=== PATIENT | male | born 2000 | race Asian ===

== ENCOUNTER 2020-05-10 10:34 | Inpatient (IN) | payer BC ==
[2020-05-10] MEDS ORDERED: SODIUM CHLORIDE 0.9% 1,000 ML IV STA (11:19)
[2020-05-10 12:17] LABS: Basophils % (A) 0 %; Eosinophils # (A) 0.2 k/uL (0-0.7); Eosinophils % (A) 1 %; HCT 41.4 % (39.0-53.0); HGB 13.4 gm/dL (13.0-17.5); Lymphocytes # (A) 1.4 k/uL (1.0-4.8); Lymphocytes % (A) 8 %; MCH 25.6 pg (25.0-35.0); MCHC 32.5 g/dL (31.0-37.0); MCV 78.9 fL (80.0-100.0); Mean Platelet Volume 6.6; Monocytes # (A) 1.4 k/uL (0-1.0); Monocytes % (A) 8 %; Neutrophils # (A) 14.7 k/uL (1.3-7.7); Neutrophils % (A) 82 %; Platelet Count 487 k/uL (150-450); RBC 5.25 m/uL (4.30-5.90); WBC 17.9 k/uL (3.8-10.6)
[2020-05-10 12:21] LABS: Appearance,Urine Clear (Clear); Bilirubin,Urine Negative (Negative); Blood,Urine Negative (Negative); Color,Urine Yellow; Glucose,Urine (UA) Negative (Negative); Hyaline Casts,Urine 1 /lpf (0-2); Ketones,Urine 2+ (Negative); Leukocyte Esterase,Urine Negative (Negative); Mucus,Urine Many /hpf; Nitrite,Urine Negative (Negative); Protein,Urine 1+ (Negative); RBC,Urine 1 /hpf (0-5); Squamous Epithelial Cell,Urine <1 /hpf (0-4); Urobilinogen,Urine <2.0 mg/dL (<2.0); WBC,Urine 1 /hpf (0-5)
[2020-05-10 12:23] LABS: ALT 32 U/L (4-49); AST 27 U/L (17-59); African American GFR (CKD) >90 (>60 ml/min/1.73 sqM); Alkaline Phosphatase 96 U/L (38-126); Amylase 45 U/L (30-110); Anion Gap 10 mmol/L; Blood Urea Nitrogen 8 mg/dL (9-20); Calcium 9.4 mg/dL (8.4-10.2); Carbon Dioxide 27 mmol/L (22-30); Chloride 99 mmol/L (98-107); Glucose 103 mg/dL (74-99); Lipase 58 U/L (23-300); Non-African American GFR(CKD) >90 (>60 ml/min/1.73 sqM); Potassium 4.3 mmol/L (3.5-5.1); Sodium 136 mmol/L (137-145); Total Bilirubin 0.8 mg/dL (0.2-1.3); Total Protein 8.3 g/dL (6.3-8.2)
--- NOTE | 2020-05-10 12:24 | ED ---
Abdominal Pain HPI - General Chief Complaint: Abdominal Pain Stated Complaint: Abd pain Time Seen by Provider: 05/10/20 11:09 Source: patient, RN notes reviewed Mode of arrival: ambulatory Limitations: no limitations - History of Present Illness Initial Comments: 19-year-old male presents emergency Department chief complaint of abdominal pain 5 or 6 days. Patient states that started in mid abdomen has no increase her right lower he's had decreased appetite but states he's been drinking large amounts of fluids.Denies diarrhea constipation. She's had no prior abdominal surgeries patient is concerned about possible diabetes as she has not family h istory patient had low-grade temp at home. Patient denies any headache or dizziness no chest pain or shortness breath. - Related Data Home Medications Medication Instructions Recorded Confirmed No Known Home Medications 05/10/20 05/10/20 Allergies Allergy/AdvReac Type Severity Reaction Status Date / Time No Known Allergies Allergy Verified 05/10/20 11:31 Review of Systems ROS Statement: Those systems with pertinent positive or pertinent negative responses have been documented in the HPI. ROS Other: All systems not noted in ROS Statement are negative. Past Medical History Past Medical History: No Reported History History of Any Multi-Drug Resistant Organisms: None Reported Past Surgical History: No Surgical Hx Reported Past Psychological History: No Psychological Hx Reported Smoking Status: Never smoker Past Alcohol Use History: Occasional Past Drug Use History: None Reported General Exam Limitations: no limitations General appearance: alert, in no apparent distress Head exam: Present: atraumatic, normocephalic, normal inspection Eye exam: Present: normal appearance, PERRL, EOMI. Absent: scleral icterus, conjunctival injection, periorbital swelling ENT exam: Present: normal exam, normal oropharynx, mucous membranes moist Neck exam: Present: normal inspection. Absent: tenderness, meningismus, lymphadenopathy Respiratory exam: Present: normal lung sounds bilaterally. Absent: respiratory distress, wheezes, rales, rhonchi, stridor Cardiovascular Exam: Present: regular rate, normal rhythm, normal heart sounds. Absent: systolic murmur, diastolic murmur, rubs, gallop, clicks GI/Abdominal exam: Present: soft, tenderness (Moderate lower quadrant), normal bowel sounds. Absent: distended, guarding, rebound, rigid Back exam: Absent: CVA tenderness (R), CVA tenderness (L) Neurological exam: Present: alert, oriented X3 Skin exam: Present: warm, dry, intact, normal color. Absent: rash Course Vital Signs 05/10/20 10:56 Temperature 100.3 F H Pulse Rate 96 Respiratory 18 Rate Blood Pressure 144/84 O2 Sat by Pulse 100 Oximetry Medical Decision Making - Medical Decision Making Case discussed with Dr. gonzales accepted admission. she asked consult GI and Dr. Coe for surgery. - Lab Data Result diagrams: 05/10/20 11:42 05/10/20 11:42 Lab Results 05/10/20 05/10/20 05/10/20 Range/Units 11:42 11:42 11:42 WBC 17.9 H (3.8-10.6) k/uL RBC 5.25 (4.30-5.90) m/uL Hgb 13.4 (13.0-17.5) gm/dL Hct 41.4 (39.0-53.0) % MCV 78.9 L (80.0-100.0) fL MCH 25.6 (25.0-35.0) pg MCHC 32.5 (31.0-37.0) g/dL RDW 14.0 (11.5-15.5) % Plt Count 487 H (150-450) k/uL MPV 6.6 Neutrophils % 82 % Lymphocytes % 8 % Monocytes % 8 % Eosinophils % 1 % Basophils % 0 % Neutrophils # 14.7 H (1.3-7.7) k/uL Lymphocytes # 1.4 (1.0-4.8) k/uL Monocytes # 1.4 H (0-1.0) k/uL Eosinophils # 0.2 (0-0.7) k/uL Basophils # 0.0 (0-0.2) k/uL Sodium 136 L (137-145) mmol/L Potassium 4.3 (3.5-5.1) mmol/L Chloride 99 (98-107) mmol/L Carbon Dioxide 27 (22-30) mmol/L Anion Gap 10 mmol/L BUN 8 L (9-20) mg/dL Creatinine 0.72 (0.66-1.25) mg/dL Est GFR (CKD-EPI)AfAm >90 (>60 ml/min/1.73 sqM) Est GFR (CKD-EPI)NonAf >90 (>60 ml/min/1.73 sqM) Glucose 103 H (74-99) mg/dL Calcium 9.4 (8.4-10.2) mg/dL Total Bilirubin 0.8 (0.2-1.3) mg/dL AST 27 (17-59) U/L ALT 32 (4-49) U/L Alkaline Phosphatase 96 (38-126) U/L Total Protein 8.3 H (6.3-8.2) g/dL Albumin 4.0 (3.5-5.0) g/dL Amylase 45 (30-110) U/L Lipase 58 (23-300) U/L Urine Color Yellow Urine Appearance Clear (Clear) Urine pH 6.0 (5.0-8.0) Ur Specific [place] 1.030 (1.001-1.035) Urine Protein 1+ H (Negative) Urine Glucose (UA) Negative (Negative) Urine Ketones 2+ H (Negative) Urine Blood Negative (Negative) Urine Nitrite Negative (Negative) Urine Bilirubin Negative (Negative) Urine Urobilinogen <2.0 (<2.0) mg/dL Ur Leukocyte Esterase Negative (Negative) Urine RBC 1 (0-5) /hpf Urine WBC 1 (0-5) /hpf Ur Squamous Epith Cells <1 (0-4) /hpf Hyaline Casts 1 (0-2) /lpf Urine Mucus Many H (None) /hpf Disposition Clinical Impression: Abdominal pain, Intra-abdominal abscess, Crohn's disease Disposition: ADMITTED IP TO THIS [facility] Condition: Fair Referrals: None,Stated [Primary Care Provider] - 1-2 days
--- NOTE | 2020-05-10 12:40 | CT ---
EXAMINATION TYPE: CT abdomen pelvis w con DATE OF EXAM: 05/10/2020 COMPARISON: HISTORY: Abd pain CT DLP: 1060.1 mGycm Automated exposure control for dose reduction was used. TECHNIQUE: Helical acquisition of images from the lung bases through the pelvis have been completed. CONTRAST: Performed without Oral Contrast and with IV Contrast, patient injected with 100 mL of Isovue 300. FINDINGS: LUNG BASES: No significant abnormality is appreciated. AORTA: No significant abnormality is appreciated. LIVER/GB: No significant abnormality is appreciated. PANCREAS: No significant abnormality is seen. SPLEEN: No significant abnormality is seen. ADRENALS: No significant abnormality is seen. KIDNEYS: No significant abnormality is seen. REPRODUCTIVE ORGANS: No significant abnormality is seen BOWEL: There is abnormal thickening of bowel loops within the central abdomen. Terminal ileum shows inflammatory change with wall thickening, increased attenuation present within the mesenteric fat. In terloop fluid collection is suspected, axial image 51 measuring 3.7 x 1.5 cm extending inferiorly to an additional collection measuring approximately 2.3 cm in size, axial image 56. Abnormal thickening of the cecum is also present, ascending colon shows some thickening as does the transverse colon FREE AIR: No Free Air visible. ASCITES: There is some free fluid in the pelvis. PELVIC ADENOPATHY: None visualized. RETROPERITONEAL ADENOPATHY: No Retroperitoneal Adenopathy visible. URINARY BLADDER: No significant abnormality is seen. OSSEOUS STRUCTURES: No significant abnormality is seen. IMPRESSION: INTERLOOP ABSCESSES WITH ASSOCIATED INFLAMMATORY CHANGE, CORRELATE FOR POSSIBLE COLITIS, CROHN'S DISE ASE
[2020-05-10] MEDS ORDERED: PIPERACILLIN-TAZOBACTAM 3.375 GM in SODIUM CHLORIDE 0.9% 100 ML IVPB STA (12:42)
[2020-05-10] MEDS ORDERED: NALOXONE 0.4 MG/ML 1 ML VIAL IV PRN (13:10)
[2020-05-10] MEDS ORDERED: MORPHINE SULFATE 4 MG/ML SYRINGE IV PRN (13:10)
[2020-05-10] MEDS ORDERED: ONDANSETRON 4 MG/2 ML VIAL IVP PRN (13:10)
--- NOTE | 2020-05-10 14:55 | P.HPIM ---
History of Present Illness This is a pleasant 19 years old male with no significant past medical history. He states he follows with her doctor at [place] as a family doctor. Since March his been having mid abdominal pain and more to the right side that comes and goes as on and off, pain was sharp in character and increased by eating relieved by cast and passing bowel movement but it will not go away completely. Niotaze like 1-2/10 in severity associated with decreased appetite Sometimes he will have diarrhea but no blood. No mucus. It was relieved spontaneously bypass given however returned back to the week after so his parent's surgeon to come to the hospital. Patient denies other symptoms, no loss of weight or nausea or chest pain. No dyspnea. No coughing. No fever His nonsmoker, drinks alcohol occasionally. No illicit tracts On admission he has fever of 101.5 Has leukocytosis of 17.9 K, rest of CBC is unremarkable. Sodium 136, creatinine normal 0.7. Liver enzymes elevated. Lipase is normal at 58. C-reactive protein is elevated at 255. ESR is ordered and is pending. Stool studies as been requested. CT of the abdomen and pelvis showing interloop abscesses with associated inflammatory changes, correlate for possible colitis, Crohn's disease. Review of Systems CONSTITUTIONAL: No fever, no malaise, no fatigue. HEENT: No recent visual problems or hearing problems. Denied any sore throat. CARDIOVASCULAR: No orthopnea, PND, no palpitations, no syncope. PULMONARY: No shortness of breath, no cough, no hemoptysis. GASTROINTESTINAL: No diarrhea, no nausea, no vomiting, no abdominal pain. Norm oactive bowel sounds. NEUROLOGICAL: No headaches, no weakness, no numbness. HEMATOLOGICAL: Denies any bleeding or petechiae. GENITOURINARY: Denies any burning micturition, frequency, or urgency. MUSCULOSKELETAL/RHEUMATOLOGICAL: Denies any joint pain, swelling, or any muscle pain. ENDOCRINE: Denies any polyuria or polydipsia. Past Medical History Past Medical History: No Reported History History of Any Multi-Drug Resistant Organisms: None Reported Past Surgical History: No Surgical Hx Reported Past Psychological History: No Psychological Hx Reported Smoking Status: Never smoker Past Alcohol Use History: Occasional Past Drug Use History: None Reported Medications and Allergies Home Medications Medication Instructions Recorded Confirmed Type No Known Home Medications 05/10/20 05/10/20 History Allergies Allergy/AdvReac Type Severity Reaction Status Date / Time No Known Allergies Allergy Verified 05/10/20 11:31 Physical Exam Vitals: Vital Signs Temp Pulse Resp BP Pulse Ox 05/10/20 13:00 101.5 F H 99 18 147/85 99 05/10/20 10:56 100.3 F H 96 18 144/84 100 Intake and Output 05/09/20 05/10/20 05/10/20 22:59 06:59 14:59 Intake Total 175 Balance 175 Intake: Amount of Fluid Infused ( 175 ml) Other: Weight 92.533 kg GENERAL: The patient is alert and oriented x3, not in any acute distress. Well developed, well nourished. HEENT: Pupils are round and equally reacting to light. EOMI. No scleral icterus. No conjunctival pallor. Normocephalic, atraumatic. No pharyngeal erythema. No thyromegaly. CARDIOVASCULAR: S1 and S2 present. No murmurs, rubs, or gallops. PULMONARY: Chest is clear to auscultation, no wheezing or crackles. -ABDOMEN: Soft, Mild right lower quadrant tenderness, no rebound tenderness, nondistended, normoactive bowel sounds. No palpable organomegaly. MUSCULOSKELETAL: No joint swelling or deformity. EXTREMITIES: No cyanosis, clubbing, or pedal edema. NEUROLOGICAL: Gross neurological examination did not reveal any focal deficits. SKIN: No rashes. No petechiae Results CBC & Chem 7: 05/10/20 11:42 05/10/20 11:42 Labs: Abnormal Lab Results - Last 24 Hours (Table) 05/10/20 05/10/20 05/10/20 Range/Units 11:42 11:42 11:42 WBC 17.9 H (3.8-10.6) k/uL MCV 78.9 L (80.0-100.0) fL Plt Count 487 H (150-450) k/uL Neutrophils # 14.7 H (1.3-7.7) k/uL Monocytes # 1.4 H (0-1.0) k/uL Sodium 136 L (137-145) mmol/L BUN 8 L (9-20) mg/dL Glucose 103 H (74-99) mg/dL Total Protein 8.3 H (6.3-8.2) g/dL Urine Protein 1+ H (Negative) Urine Ketones 2+ H (Negative) Urine Mucus Many H (None) /hpf Assessment and Plan Assessment: Gastroenteritis, especially terminal ileitis and ascending and transverse colitis suspicious for Crohn's disease Interloop abdominal abscesses measuring 3.7 x 1.5 cm and additional 2.3 cm abscess. Sepsis secondary to above Plan: This is a pleasant 19 years old male who presents with gastroenteritis and abdominal abscess. Continue with Zosyn. Follow-up culture results. Follow-up stool studies. Follow-up ESR and C-reactive protein. GI and surgery consult Labs and medication were reviewed.. Continue same treatment. Continue with symptomatic treatment. Resume home medication. Monitor lytes and vitals. DVT and GI prophylaxis. Further recommendations depends on the clinical course of the patient DVT prophylaxis: Subcutaneous lovenox GI Prophylaxis: Ppi
[2020-05-10] MEDS: SODIUM CHLORIDE 0.9% 1,000 ML IV SCH ×2 (15:27→20:45)
[2020-05-10] MEDS: PANTOPRAZOLE 40 MG/10 ML VIAL IVP SCH (16:55)
[2020-05-10] MEDS: PIPERACILLIN-TAZOBACTAM 3.375 GM in SODIUM CHLORIDE 0.9% 100 ML IVPB SCH (20:44)
--- NOTE | 2020-05-10 22:31 | P.CONS ---
History of Present Illness - Reason for Consult Consult date: 05/10/20 Crohn's disease Requesting physician: Rik Yusuf Sheet - Chief Complaint Abdominal pain - History of Present Illness Pleasant 19-year-old male who denies any prior medical history who presented to the hospital due to complaints of abdominal pain. The patient reports intermi ttent episodes of abdominal pain which have been going on over the past few months. The pain worsened recently and the patient presented for further evaluation. He reports periumbilical pain worse on the right side of his abdomen. He states that the pain is aching in nature and worse with eating. He has had associated loss of appetite. The patient was found to be febrile on presentation with a temperature of 101.5F. Amylase and lipase within normal limits at 45 and 50 respectively with WBC 17.9, hemoglobin 13.4, the count 487,000. The patient denies any history of abdominal problems or issues with bowel movements prior to the past few months. He reports last bowel movement was today and normal in color. He denies any signs or symptoms of GI bleeding, although he does feel that bowel movements have been darker. Computed tomography scan of the abdomen on presentation showed interloop abscess with inflammatory changes of the terminal ileum and right colon. He denies any personal or family history of inflammatory bowel disease. Review of Systems REVIEW OF SYSTEMS: CONSTITUTIONAL: Denies any fevers, chills, weight change or fatigue. CARDIOVASCULAR: Denies any chest pain, palpitations high or low blood pressures RESPIRATORY: Denies any shortness of breath, hemoptysis or cough. GENITOURINARY: No dysuria or hematuria. MUSCULOSKELETAL: No weakness reported. SKIN: Denies any new rashes or lesions, jaundice or pallor. PSYCHIATRIC: Denies any depression or anxiety. NEUROLOGY: Denies headache, denies any new focal deficits. EARS/NOSE/THROAT: No recent hearing change, congestion, nasal discharge or sore throat. EYES: No pain in eyes, discharge or change in vision. GASTROINTESTINAL: As per HPI. Past Medical History Past Medical History: No Reported History History of Any Multi-Drug Resistant Organisms: None Reported Past Surgical History: No Surgical Hx Reported Past Psychological History: No Psychological Hx Reported Smoking Status: Never smoker Past Alcohol Use History: Occasional Past Drug Use History: None Reported - Past Family History Father Family Medical History: Coronary Artery Disease (CAD), Diabetes Mellitus Medications and Allergies Home Medications Medication Instructions Recorded Confirmed Type No Known Home Medications 05/10/20 05/10/20 History Allergies Allergy/AdvReac Type Severity Reaction Status Date / Time No Known Allergies Allergy Verified 05/10/20 11:31 Physical Exam Vitals: Vital Signs Temp Pulse Pulse Resp BP BP Pulse Ox 05/10/20 19:56 98.2 F 82 17 127/70 100 05/10/20 14:20 100.4 F H 99 16 139/78 98 05/10/20 13:00 101.5 F H 99 18 147/85 99 05/10/20 10:56 100.3 F H 96 18 144/84 100 Intake and Output 05/10/20 05/10/20 05/10/20 06:59 14:59 22:59 Intake Total 175 Balance 175 Intake: Amount of Fluid Infused ( 175 ml) Other: Voiding Method Toilet Weight 92.533 kg On physical examination, patient appears comfortable in no apparent distress. HEAD: Normocephalic, atraumatic. EYES: No scleral icterus. No conjunctival injection. MOUTH: No lesions, tongue midline. NECK: Trachea midline, no gross abnormalities. CHEST: Clear to auscultation with no wheezing or rhonchi appreciated. HEART: Regular rate and rhythm. ABDOMEN: Soft, thin with tenderness of the right upper and lower quadrants of the abdomen. Bowel sounds are positive. No organomegaly. No guarding or rigidity. EXTREMITIES: No pedal edema. SKIN: No rashes, no jaundice. NEUROLOGIC: Alert and oriented x3. No focal deficits. Results CBC & Chem 7: 05/10/20 11:42 05/10/20 11:42 Labs: Abnormal Lab Results - Last 24 Hours (Table) 05/10/20 05/10/20 05/10/20 Range/Units 11:42 11:42 11:42 WBC 17.9 H (3.8-10.6) k/uL MCV 78.9 L (80.0-100.0) fL Plt Count 487 H (150-450) k/uL Neutrophils # 14.7 H (1.3-7.7) k/uL Monocytes # 1.4 H (0-1.0) k/uL ESR (0-15) mm/hr Sodium 136 L (137-145) mmol/L BUN 8 L (9-20) mg/dL Glucose 103 H (74-99) mg/dL C-Reactive Protein (<10.0) mg/L Total Protein 8.3 H (6.3-8.2) g/dL Urine Protein 1+ H (Negative) Urine Ketones 2+ H (Negative) Urine Mucus Many H (None) /hpf 05/10/20 05/10/20 Range/Units 11:42 11:42 WBC (3.8-10.6) k/uL MCV (80.0-100.0) fL Plt Count (150-450) k/uL Neutrophils # (1.3-7.7) k/uL Monocytes # (0-1.0) k/uL ESR 85 H (0-15) mm/hr Sodium (137-145) mmol/L BUN (9-20) mg/dL Glucose (74-99) mg/dL C-Reactive Protein 255.9 H (<10.0) mg/L Total Protein (6.3-8.2) g/dL Urine Protein (Negative) Urine Ketones (Negative) Urine Mucus (None) /hpf CT scan - abdomen: report reviewed (Computed tomography scan of the abdomen with findings of interloop abscess and inflammatory changes of the terminal ileum and right colon possibly related to Crohn's colitis.) Assessment and Plan (1) Abdominal pain Narrative/Plan: 19-year-old male with no prior medical history who presented to the hospital with abdominal pain present over the past few months and worsening prior to presentation. She reported associated decreased oral intake and worsening of the pain with eating. He is continued to have bowel movements and denies any signs or symptoms GI bleeding although he does report some dark colored bowel movements. Patient did have leukocytosis on presentation with a WBC 17.9 and was noted to have a temperature of 101.5F. Currently the patient is on broad- spectrum antibiotic therapy. Computed tomography scan of the abdomen was significant for inflammatory changes of the terminal ileum and right colon as well as abscess formation. Unclear etiology of symptoms, however given presentation and findings on imaging concern is for Crohn's disease. Current Visit: Yes Status: Acute Code(s): R10.9 - UNSPECIFIED ABDOMINAL PAIN SNOMED Code(s): 19657250 (2) Intra-abdominal abscess Current Visit: Yes Status: Acute Code(s): K65.1 - PERITONEAL ABSCESS SNOMED Code(s): 12489032 Plan: Supportive care Nothing by mouth Continue monitor CBC, BMP, LFTs ESR and CRP ordered Continue broad-spectrum antibiotic therapy Await recommendations from the infectious disease and surgical services Extensive discussion with the patient regarding findings and presentation, at this time risk for endoscopic evaluation and complications of the procedure are increased in the setting of abscess formation and will continue medical management at this time IR service consult for possible drainage of the abscess Thank you for allowing us to participate in the care of the patient we will continue to follow
--- NOTE | 2020-05-11 00:35 | CONS ---
CONSULTATION DATE OF SERVICE: 05/10/2020 REASON FOR CONSULTATION: Abdominal abscess. HISTORY OF PRESENT ILLNESS: The patient is a 19-year-old male otherwise healthy presenting to the ER for abdominal pain. The pain started last about 6 days ago. Patient mentioned he did have some . However that lasted a few days and then disappeared and the patient did not seek any medical attention. Patient had been complaining of pain mostly in the periumbilical area, described to be more sharp in nature, almost 7 to 8/10 in severity. Some nausea but no vomiting. The patient did mention that eating food makes it get worse. No vomiting, but he did have diarrhea but no blood or mucus in the stool. Did have some chills but did not recall having any fever at home. On presentation to the hospital, the patient did have a fever of 101.5 degrees Fahrenheit. The patient did have mild tachycardia. The patient did have white count 17.9 with left shift. UA was negative. The patient did have CT of abdominal pelvis completed with evidence of interloop abscesses and change for possible colitis. The patient was started on Zosyn and admitted to the hospital. Infectious Disease was consulted for further management of antibiotic therapy. REVIEW OF SYSTEMS: Positive points have been mentioned in HPI. Rest of systems are negative. PAST MEDICAL HISTORY: No illnesses. PAST SURGICAL HISTORY: No surgeries. SOCIAL HISTORY: Denies smoking, occasionally drinks. No drug use. FAMILY HISTORY: No pertinent findings noticed. ALLERGIES: No known drug allergies. MEDICATIONS: The patient is currently on Tylenol, Lovenox, morphine sulfate, Narcan, Zofran, Protonix, Zosyn. PHYSICAL EXAMINATION: Blood pressure 127/70 with a pulse of 82, temperature 98.2, T-max 101.5. He is 100% on room air. General description is a young male lying in bed in no distress. No tachypnea or accessory muscles of respiration use. HEENT: Examination shows no pallor or scleral icterus. Oral mucous membrane is dry. Neck: Trachea central. No thyromegaly. Lungs: Unlabored breathing. Clear to auscultation anteriorly. No wheeze or crackles. Heart S1, S2. Regular rate and rhythm. ABDOMEN: Soft, mildly distended and tender. No guarding or rigidity. Extremities: No edema of the feet. Skin examination: No rash or mass palpable. Neurological: Patient is awake, alert, oriented times three. Mood and affect normal. LABS: Hemoglobin 13.4, white count 17.9, BUN of 8, creatinine 0.72. CRP to 5.9. DIAGNOSTIC IMPRESSION AND PLAN: Patient admitted to the hospital with sepsis in this patient who did have a fever, elevated white count, tachycardia source is intraabdominal abscess and a question of possible communication to the inflammatory bowel disease in this patient who did not have any diagnostic workup in the past and will need to cover for the enteric gram- negative both aerobes and anaerobes with likely pathogen. PLAN: 1. Zosyn 3.75 g q.8 hours should provide adequate coverage. 2. Await either Interventional Radiology or open drainage of this abscess at which time fluid should be sent for culture. 3. We will follow on clinical condition and culture to further adjust medication if needed. Thank you for this consultation. Will follow this patient along with you. MMODL / IJN: [id number] /
[2020-05-11] MEDS: PIPERACILLIN-TAZOBACTAM 3.375 GM in SODIUM CHLORIDE 0.9% 100 ML IVPB SCH ×3 (04:30→21:13)
[2020-05-11] MEDS: SODIUM CHLORIDE 0.9% 1,000 ML IV SCH ×3 (05:30→21:02)
[2020-05-11] MEDS: ENOXAPARIN 40 MG/0.4 ML SYRINGE SQ SCH (06:41)
[2020-05-11 06:50] LABS: Basophils # (A) 0.1 k/uL (0-0.2); Basophils % (A) 0 %; Eosinophils # (A) 0.1 k/uL (0-0.7); Eosinophils % (A) 1 %; HCT 37.8 % (39.0-53.0); HGB 12.3 gm/dL (13.0-17.5); Lymphocytes % (A) 7 %; MCH 25.9 pg (25.0-35.0); MCHC 32.4 g/dL (31.0-37.0); Mean Platelet Volume 6.4; Monocytes # (A) 1.1 k/uL (0-1.0); Monocytes % (A) 8 %; Neutrophils # (A) 11.4 k/uL (1.3-7.7); Neutrophils % (A) 83 %; Platelet Count 439 k/uL (150-450); RBC 4.73 m/uL (4.30-5.90); RDW 13.8 % (11.5-15.5); WBC 13.8 k/uL (3.8-10.6)
[2020-05-11] MEDS: PANTOPRAZOLE 40 MG/10 ML VIAL IVP SCH (07:21)
[2020-05-11 10:21] LABS: Anion Gap 9.4 mmol/L (4.00-12.00); C Reactive Protein 22.9 mg/dL (0.0-0.8); Calcium 8.8 mg/dL (8.7-10.3); Carbon Dioxide 24.6 mmol/L (21.6-31.8); Non-African American GFR(CKD) 127.7 (60.0-200.0); Potassium 4.1 mmol/L (3.5-5.5)
[2020-05-11 10:44] LABS: Erythrocyte Sedimentation Rate 78 mm/Hr (0-15)
--- NOTE | 2020-05-11 11:06 | P.GSCN ---
History of Present Illness Consult date: 05/11/20 History of present illness: CHIEF COMPLAINT: Right lower abdominal pain HISTORY OF PRESENT ILLNESS: This is a 19-year-old male with no significant past medical history. He presents to the hospital with right-sided lower abdominal pain that started about 5 days ago. He had similar symptoms a few weeks ago as well and did not seek medical attention at that time. Patient reports that the pain is worse after eating. He's had decrease in appetite. At this time he has no pain during the exam. He denies any nausea or vomiting. Denies any diarrhea. He has had small flaky formed stool. He had a computed tomography scan of the abdomen and pelvis showing interloop abscesses with associated inflammatory change correlate for possible colitis and Crohn's disease. He had a temp of 101.5 white count elevated at 17.9 he's on IV Zosyn. Surgical consult was placed regarding the abdominal abscess. I initially interventional radiology was consulted for possible drainage of the abscess. Due to the abscess is located intervention radiology cannot drink this abscess. Patient denies any family history of ulcerative colitis or Crohn's disease. Patient denies any blood in the stools. Denies any chills or sweats. PAST MEDICAL HISTORY: See list. PAST SURGICAL HISTORY: See list. MEDICATIONS: See list. ALLERGIES: See list. SOCIAL HISTORY: No illicit drug use. REVIEW OF SYSTEMS: CONSTITUTIONAL: Denies fever or chills. HEENT: Denies blurred vision, vision changes, or eye pain. Denies hemoptysis CARDIOVASCULAR: Denies chest pain or pressure. RESPIRATORY: No shortness of breath. GASTROINTESTINAL: See HPI for pertinent findings HEMATOLOGIC: Denies bleeding disorders. GENITOURINARY: Denies any blood in urine or increased urinary frequency. SKIN: Denies pruitis. Denies rash. PHYSICAL EXAM: VITAL SIGNS: Reviewed GENERAL: Well-developed in no acute distress. HEENT: No sclera icterus. Extraocular movements grossly intact. Moist buccal mucosa. Head is atraumatic, normocephalic. No nasal drainage. ABDOMEN: Soft. Nondistended. Nontender with palpation NEUROLOGIC: Alert and oriented. Cranial nerves II through XII grossly intact. LABORATORY DATA: WBC 17.9 down to 13.8 Hemoglobin 12.3 CRP 1255.9 down to 22.9 amylase lipase normal LFTs normal A1c 6.0 IMAGING: computed tomography scan of the abdomen and pelvis showing interloop abscesses with associated inflammatory change correlate for possible colitis and Crohn's disease ASSESSMENT: 1. Intra-abdominal abscess 2. Possible Crohn's disease. Being followed by GI service 3. Abdominal pain PLAN: -Patient is tentatively scheduled tomorrow 05/12/[address] Coe for exploratory laparotomy and small bowel resection -Continue IV antibiotics per ID -Continue IV fluids -Keep patient nothing by mouth -Continue to monitor CBC Thank you for this consultation Physician Contact Center Associate note has been reviewed by physician. Signing provider agrees with the documented findings, assessment, and plan of care. Past Medical History Past Medical History: No Reported History History of Any Multi-Drug Resistant Organisms: None Reported Past Surgical History: No Surgical Hx Reported Past Psychological History: No Psychological Hx Reported Smoking Status: Never smoker Past Alcohol Use History: Occasional Past Drug Use History: None Reported - Past Family History Father Family Medical History: Coronary Artery Disease (CAD), Diabetes Mellitus Medications and Allergies Home Medications Medication Instructions Recorded Confirmed Type No Known Home Medications 05/10/20 05/10/20 History Allergies Allergy/AdvReac Type Severity Reaction Status Date / Time No Known Allergies Allergy Verified 05/10/20 11:31 Surgical - Exam Vital Signs Temp Pulse Resp BP Pulse Ox 100.3 F H 96 18 144/84 100 05/10/20 10:56 05/10/20 10:56 05/10/20 10:56 05/10/20 10:56 05/10/20 10:56 Results - Labs 05/11/20 06:03 05/11/20 06:03 Abnormal Lab Results - Last 24 Hours (Table) 05/10/20 05/10/20 05/10/20 Range/Units 11:42 11:42 11:42 WBC 17.9 H (3.8-10.6) k/uL Hgb (13.0-17.5) gm/dL Hct (39.0-53.0) % MCV 78.9 L (80.0-100.0) fL Plt Count 487 H (150-450) k/uL Neutrophils # 14.7 H (1.3-7.7) k/uL Monocytes # 1.4 H (0-1.0) k/uL ESR (0-15) mm/hr Sodium 136 L (137-145) mmol/L BUN 8 L (9-20) mg/dL BUN/Creatinine Ratio (12.00-20.00) Ratio Glucose 103 H (74-99) mg/dL C-Reactive Protein (<10.0) mg/L Total Protein 8.3 H (6.3-8.2) g/dL Urine Protein 1+ H (Negative) Urine Ketones 2+ H (Negative) Urine Mucus Many H (None) /hpf 05/10/20 05/10/20 05/11/20 Range/Units 11:42 11:42 06:03 WBC 13.8 H (3.8-10.6) k/uL Hgb 12.3 L (13.0-17.5) gm/dL Hct 37.8 L (39.0-53.0) % MCV (80.0-100.0) fL Plt Count (150-450) k/uL Neutrophils # 11.4 H (1.3-7.7) k/uL Monocytes # 1.1 H (0-1.0) k/uL ESR 85 H 78 H (0-15) mm/hr Sodium (137-145) mmol/L BUN (9-20) mg/dL BUN/Creatinine Ratio (12.00-20.00) Ratio Glucose (74-99) mg/dL C-Reactive Protein 255.9 H (<10.0) mg/L Total Protein (6.3-8.2) g/dL Urine Protein (Negative) Urine Ketones (Negative) Urine Mucus (None) /hpf 05/11/20 Range/Units 06:03 WBC (3.8-10.6) k/uL Hgb (13.0-17.5) gm/dL Hct (39.0-53.0) % MCV (80.0-100.0) fL Plt Count (150-450) k/uL Neutrophils # (1.3-7.7) k/uL Monocytes # (0-1.0) k/uL ESR (0-15) mm/hr Sodium (137-145) mmol/L BUN 8.0 L (9-20) mg/dL BUN/Creatinine Ratio 10.00 L (12.00-20.00) Ratio Glucose (74-99) mg/dL C-Reactive Protein 22.9 H (<10.0) mg/L Total Protein (6.3-8.2) g/dL Urine Protein (Negative) Urine Ketones (Negative) Urine Mucus (None) /hpf Diabetes panel 05/10/20 05/10/20 05/11/20 Range/Units 11:42 11:42 06:03 Sodium 136 L 135 (137-145) mmol/L Potassium 4.3 4.1 (3.5-5.1) mmol/L Chloride 99 101 (98-107) mmol/L Carbon Dioxide 27 24.6 (22-30) mmol/L BUN 8 L 8.0 L (9-20) mg/dL Creatinine 0.72 0.8 (0.66-1.25) mg/dL Glucose 103 H 87 (74-99) mg/dL Hemoglobin A1c 6.0 (4.0-6.0) % Calcium 9.4 8.8 (8.4-10.2) mg/dL AST 27 (17-59) U/L ALT 32 (4-49) U/L Alkaline Phosphatase 96 (38-126) U/L Total Protein 8.3 H (6.3-8.2) g/dL Albumin 4.0 (3.5-5.0) g/dL Calcium panel 05/10/20 05/11/20 Range/Units 11:42 06:03 Calcium 9.4 8.8 (8.4-10.2) mg/dL Albumin 4.0 (3.5-5.0) g/dL Pituitary panel 05/10/20 05/11/20 Range/Units 11:42 06:03 Sodium 136 L 135 (137-145) mmol/L Potassium 4.3 4.1 (3.5-5.1) mmol/L Chloride 99 101 (98-107) mmol/L Carbon Dioxide 27 24.6 (22-30) mmol/L BUN 8 L 8.0 L (9-20) mg/dL Creatinine 0.72 0.8 (0.66-1.25) mg/dL Glucose 103 H 87 (74-99) mg/dL Calcium 9.4 8.8 (8.4-10.2) mg/dL Adrenal panel 05/10/20 05/11/20 Range/Units 11:42 06:03 Sodium 136 L 135 (137-145) mmol/L Potassium 4.3 4.1 (3.5-5.1) mmol/L Chloride 99 101 (98-107) mmol/L Carbon Dioxide 27 24.6 (22-30) mmol/L BUN 8 L 8.0 L (9-20) mg/dL Creatinine 0.72 0.8 (0.66-1.25) mg/dL Glucose 103 H 87 (74-99) mg/dL Calcium 9.4 8.8 (8.4-10.2) mg/dL Total Bilirubin 0.8 (0.2-1.3) mg/dL AST 27 (17-59) U/L ALT 32 (4-49) U/L Alkaline Phosphatase 96 (38-126) U/L Total Protein 8.3 H (6.3-8.2) g/dL Albumin 4.0 (3.5-5.0) g/dL
--- NOTE | 2020-05-11 15:05 | P.PN ---
Subjective Progress Note Date: 05/11/20 Principal diagnosis: Abdominal pain, abdominal abscess, Crohn's disease The patient was seen and examined sitting up in a bedside chair. He is his abdominal pain has improved immensely. Denies any nausea or vomiting. He had one soft bowel movement this morning which he states was brown, denies any rectal bleeding or melena. He has been afebrile today. He continues on IV Z osyn. Interventional radiology unable to access abscess to drain. Infectious disease and general surgery are on consult. The patient is tentatively scheduled for exploratory laparotomy with possible small bowel resection tomorrow. Objective - Vital Signs Vital signs: Vital Signs Temp 98.1 F 05/11/20 14:00 Pulse 85 05/11/20 14:00 Resp 16 05/11/20 14:00 BP 142/86 05/11/20 14:00 Pulse Ox 99 05/11/20 14:00 Intake & Output 05/10/20 05/11/20 05/11/20 18:59 06:59 18:59 Intake Total 175 Balance 175 Weight 92.533 kg Intake: Amount of Fluid Infused ( 175 ml) Other: Voiding Method Toilet Toilet # Voids 2 - Exam General appearance: The patient is alert, oriented, in no acute distress. HET: Head is normocephalic and atraumatic. Conjunctiva pink. Sclera andicteric. Neck: Supple without lymphadenopathy. Abdomen: Soft, mild tenderness in right lower quadrant, nondistended with bowel sounds. No guarding or rigidity. Extremities: Normal skin color and turgor. No pedal edema Neurological: No focal deficits. Alert and oriented 3. - Labs CBC & Chem 7: 05/11/20 06:03 05/11/20 06:03 Labs: Abnormal Lab Results - Last 24 Hours (Table) 05/11/20 05/11/20 Range/Units 06:03 06:03 WBC 13.8 H (3.8-10.6) k/uL Hgb 12.3 L (13.0-17.5) gm/dL Hct 37.8 L (39.0-53.0) % Neutrophils # 11.4 H (1.3-7.7) k/uL Monocytes # 1.1 H (0-1.0) k/uL ESR 78 H (0-15) mm/Hr BUN 8.0 L (9.0-27.0) mg/dL BUN/Creatinine Ratio 10.00 L (12.00-20.00) Ratio C-Reactive Protein 22.9 H (0.0-0.8) mg/dL Assessment and Plan (1) Abdominal pain Narrative/Plan: 19-year-old male with no prior medical history who presented to the hospital with abdominal pain present over the past few months and worsening prior to presentation. She reported associated decreased oral intake and worsening of the pain with eating. He is continued to have bowel movements and denies any signs or symptoms GI bleeding although he does report some dark colored bowel movements. Patient did have leukocytosis on presentation with a WBC 17.9 and was noted to have a temperature of 101.5F. Currently the patient is on broad- spectrum antibiotic therapy. Computed tomography scan of the abdomen was significant for inflammatory changes of the terminal ileum and right colon as well as abscess formation. Unclear etiology of symptoms, however given presentation and findings on imaging concern is for Crohn's disease. Current Visit: Yes Status: Acute Code(s): R10.9 - UNSPECIFIED ABDOMINAL PAIN SNOMED Code(s): 68714284 (2) Intra-abdominal abscess Narrative/Plan: Interventional radiology unable to access abscess. General surgery is on consult and patient is tentatively scheduled for exploratory laparotomy with possible small bowel resection tomorrow. Current Visit: Yes Status: Acute Code(s): K65.1 - PERITONEAL ABSCESS SNOMED Code(s): 40393346 Plan: Portable care Nothing by mouth Continue to monitor CBC, BMP, LFTs ESR and CRP ordered next line continue broad-spectrum antibiotic therapy Appreciate recommendations from infectious disease and surgical services No plan for any endoscopic intervention at this time IR service consult for possible drainage of abscess, unable to access abscess Thank you for allowing us to participate in the care of the patient we will continue to follow I agree with the dictator's note, documented as a scribe by Lacie Meyer.
[2020-05-11] MEDS: ACETAMINOPHEN TAB 325 MG TAB PO PRN (21:11)
--- NOTE | 2020-05-11 22:27 | P.PN ---
Subjective This is a pleasant 19 years old male with no significant past medical history. He states he follows with her doctor at [place] as a family doctor. Since March his been having mid abdominal pain and more to the right side that comes and goes as on and off, pain was sharp in character and increased by eating relieved by cast and passing bowel movement but it will not go away completely. [place] like 1-2/10 in severity associated with decreased appetite Sometimes he will have diarrhea but no blood. No mucus. It was relieved spontaneously bypass given however returned back to the week after so his parent's surgeon to come to the hospital. Patient denies other symptoms, no loss of weight or nausea or chest pain. No dyspnea. No coughing. No fever His nonsmoker, drinks alcohol occasionally. No illicit tracts On admission he has fever of 101.5 Has leukocytosis of 17.9 K, rest of CBC is unremarkable. Sodium 136, creatinine normal 0.7. Liver enzymes elevated. Lipase is normal at 58. C-reactive protein is elevated at 255. ESR is ordered and is pending. Stool studies as been requested. CT of the abdomen and pelvis showing interloop abscesses with associated inflammatory changes, correlate for possible colitis, Crohn's disease. 05/11/2020 Patient today with no abdominal pain, no diarrhea. He was kept nothing by mouth. He is hemodynamically stable Fever subsided and WBC trending down to 13.8 K. BMP is unremarkable. Patient remains on Zosyn with infectious disease on the case GI and surgery teams on the case Review of Systems CONSTITUTIONAL: No fever, no malaise, no fatigue. HEENT: No recent visual problems or hearing problems. Denied any sore throat. CARDIOVASCULAR: No orthopnea, PND, no palpitations, no syncope. PULMONARY: No shortness of breath, no cough, no hemoptysis. GASTROINTESTINAL: No diarrhea, no nausea, no vomiting, no abdominal pain. Normoactive bowel sounds. NEUROLOGICAL: No headaches, no weakness, no numbness. Active Medications Generic Name Dose Route Start Last Admin Trade Name Freq PRN Reason Stop Dose Admin Acetaminophen 650 mg 05/10/20 21:05 05/11/20 21:11 Acetaminophen Tab 325 Mg Tab PO 650 mg Q6HR PRN Administration Fever and/ or Pain Enoxaparin Sodium 40 mg 05/11/20 09:00 05/11/20 06:41 Enoxaparin 40 Mg/0.4 Ml Syringe SQ Not Given DAILY MARGARITO Sodium Chloride 1,000 mls @ 130 mls/hr 05/10/20 13:15 05/11/20 21:02 Saline 0.9% IV Not Given .[id number] MARGARITO Piperacillin Sod/Tazobactam 100 mls @ 25 mls/hr 05/10/20 21:00 05/11/20 21:13 Sod 3.375 gm/ Sodium Chloride IVPB 25 mls/hr Q8H MARGARITO Administration Morphine Sulfate 4 mg 05/10/20 13:10 Morphine Sulfate 4 Mg/Ml Syringe IV Q4HR PRN Severe Pain Naloxone HCl 0.2 mg 05/10/20 13:10 Naloxone 0.4 Mg/Ml 1 Ml Vial IV Q2M PRN Opioid Reversal Ondansetron HCl 4 mg 05/10/20 13:10 Ondansetron 4 Mg/2 Ml Vial IVP Q8HR PRN Nausea And Vomiting Pantoprazole Sodium 40 mg 05/10/20 15:00 05/11/20 07:21 Pantoprazole 40 Mg/10 Ml Vial IVP 40 mg DAILY MARGARITO Administration Objective - Vital Signs Vital signs: Vital Signs Temp 98.1 F 05/11/20 14:00 Pulse 85 05/11/20 14:00 Resp 16 05/11/20 18:57 BP 142/86 05/11/20 14:00 Pulse Ox 99 05/11/20 14:00 Intake & Output 05/11/20 05/11/20 05/12/20 06:59 18:59 06:59 Other: Voiding Method Toilet Toilet # Voids 2 4 - Exam GENERAL: The patient is alert and oriented x3, not in any acute distress. Well developed, well nourished. HEENT: Pupils are round and equally reacting to light. EOMI. No scleral icterus. No conjunctival pallor. Normocephalic, atraumatic. No pharyngeal erythema. No thyromegaly. CARDIOVASCULAR: S1 and S2 present. No murmurs, rubs, or gallops. PULMONARY: Chest is clear to auscultation, no wheezing or crackles. ABDOMEN: Soft, nontender, nondistended, normoactive bowel sounds. No palpable organomegaly. MUSCULOSKELETAL: No joint swelling or deformity. EXTREMITIES: No cyanosis, clubbing, or pedal edema. NEUROLOGICAL: Gross neurological examination did not reveal any focal deficits. SKIN: No rashes. no petechiae. - Labs CBC & Chem 7: 05/11/20 06:03 05/11/20 06:03 Labs: Abnormal Lab Results - Last 24 Hours (Table) 05/11/20 05/11/20 Range/Units 06:03 06:03 WBC 13.8 H (3.8-10.6) k/uL Hgb 12.3 L (13.0-17.5) gm/dL Hct 37.8 L (39.0-53.0) % Neutrophils # 11.4 H (1.3-7.7) k/uL Monocytes # 1.1 H (0-1.0) k/uL ESR 78 H (0-15) mm/Hr BUN 8.0 L (9.0-27.0) mg/dL BUN/Creatinine Ratio 10.00 L (12.00-20.00) Ratio C-Reactive Protein 22.9 H (0.0-0.8) mg/dL Microbiology - Last 24 Hours (Table) 05/10/20 13:27 Blood Culture - Preliminary Blood No Growth after 24 hours Assessment and Plan Assessment: Gastroenteritis, especially terminal ileitis and ascending and transverse colitis suspicious for Crohn's disease Interloop abdominal abscesses measuring 3.7 x 1.5 cm and additional 2.3 cm abscess. Sepsis secondary to above Plan: This is a pleasant 19 years old male who presents with gastroenteritis and abdominal abscess. Continue with Zosyn. Follow-up culture results. Follow-up stool studies. GI and surgery consult Antibiotics as per ID team Labs and medication were reviewed.. Continue same treatment. Continue with symptomatic treatment. Resume home medication. Monitor lytes and vitals. DVT and GI prophylaxis. Further recommendations depends on the clinical course of the patient DVT prophylaxis: Subcutaneous lovenox GI Prophylaxis: Ppi
--- NOTE | 2020-05-11 23:01 | PN ---
PROGRESS NOTE DATE OF SERVICE: 05/11/2020 REASON FOR FOLLOWUP: Intraabdominal abscess. INTERVAL HISTORY: The patient's overall fever pattern has improved. No fever in the last 24 hours. The patient is feeling slightly better. He is complaining of some abdominal pain after he was fed. No further nausea, vomiting or diarrhea. PHYSICAL EXAMINATION: Blood pressure 142/86, pulse of 85, temperature 98.1. He is 99% on room air. General description is a young male up in the chair in no distress. RESPIRATORY SYSTEM: Unlabored breathing. Clear to auscultation anteriorly. HEART: S1, S2. Regular rate and rhythm. ABDOMEN: Soft. No tenderness. LABS: Hemoglobin is 12.8, white count 13.8, BUN of 8, creatinine 0.8. Blood culture negative. DIAGNOSTIC IMPRESSION AND PLAN: Patient with an intraabdominal abscess, covered with Zosyn. Possible laparotomy drainage of the abscess and deep culture. The patient and his father had multiple questions. Those were answered in layman's terms. MMODL / IJN: [id number] /
[2020-05-12] MEDS: SODIUM CHLORIDE 0.9% 1,000 ML IV SCH ×3 (03:26→20:46)
[2020-05-12] MEDS: PIPERACILLIN-TAZOBACTAM 3.375 GM in SODIUM CHLORIDE 0.9% 100 ML IVPB SCH ×3 (05:13→21:40)
[2020-05-12 07:36] LABS: Basophils % (A) 0 %; Eosinophils # (A) 0.1 k/uL (0-0.7); Eosinophils % (A) 1 %; HCT 39.6 % (39.0-53.0); HGB 12.9 gm/dL (13.0-17.5); Lymphocytes # (A) 0.9 k/uL (1.0-4.8); Lymphocytes % (A) 9 %; MCHC 32.6 g/dL (31.0-37.0); MCV 79.8 fL (80.0-100.0); Mean Platelet Volume 6.5; Monocytes # (A) 0.9 k/uL (0-1.0); Monocytes % (A) 9 %; Neutrophils # (A) 7.9 k/uL (1.3-7.7); Neutrophils % (A) 80 %; Platelet Count 491 k/uL (150-450); RBC 4.96 m/uL (4.30-5.90); RDW 13.9 % (11.5-15.5); WBC 9.9 k/uL (3.8-10.6)
[2020-05-12 09:33] LABS: Erythrocyte Sedimentation Rate 82 mm/hr (0-15)
[2020-05-12] MEDS: PANTOPRAZOLE 40 MG/10 ML VIAL IVP SCH (09:40)
[2020-05-12 11:18] LABS: African American GFR (CKD) 156.3 (60.0-200.0); Anion Gap 9.2 mmol/L (4.00-12.00); BUN/Creat Ratio 7.14 Ratio (12.00-20.00); C Reactive Protein 19.7 mg/dL (0.0-0.8); Calcium 9.1 mg/dL (8.7-10.3); Carbon Dioxide 24.8 mmol/L (21.6-31.8); Non-African American GFR(CKD) 134.9 (60.0-200.0); Potassium 3.6 mmol/L (3.5-5.5)
--- NOTE | 2020-05-12 11:22 | P.PN ---
Subjective Progress Note Date: 05/12/20 CHIEF COMPLAINT: Right lower quadrant abdominal pain HISTORY OF PRESENT ILLNESS: Patient is followed for intra-abdominal abscess. Patient initially scheduled for surgery today. However surgery has been c anceled. Patient is having improvement in his symptoms and white count has normalized. He is tolerating diet. Patient reporting his abdominal pain about a 1 out of 10. Denies any nausea or vomiting. He did have a diarrhea bowel movement yesterday and one this morning. No blood in the stools. He does report some mucus and this was. He did have a temp last night of 100.7 with heart rate of 102 and temperature this morning is 99.1. Heart rate 90. White count has normalized from 13.8-9.9 PHYSICAL EXAM: VITAL SIGNS: Reviewed. GENERAL: Well-developed in no acute distress. HEENT: No sclera icterus. Extraocular movements grossly intact. Moist buccal mucosa. Head is atraumatic, normocephalic. ABDOMEN: Soft. Nondistended. Right lower quadrant tenderness with palpation NEUROLOGIC: Alert and oriented. Cranial nerves II through XII grossly intact. ASSESSMENT: 1. Intra-abdominal abscess 2. Possible Crohn's disease. Being followed by GI service 3. Abdominal pain PLAN: -Surgery canceled for today. Patient's white count has shown improvement -Continue IV antibiotics -Start clear liquid diet -Patient would like to follow up with [facility] for furt her workup Physician Outside Sales Advertising Executive note has been reviewed by physician. Signing provider agrees with the documented findings, assessment, and plan of care. Objective - Vital Signs Vital signs: Vital Signs Temp 99.1 F 05/12/20 08:00 Pulse 90 05/12/20 08:00 Resp 18 05/12/20 08:00 BP 127/78 05/12/20 08:00 Pulse Ox 99 05/12/20 08:00 Intake & Output 05/11/20 05/12/20 05/12/20 18:59 06:59 18:59 Other: Voiding Method Toilet Toilet # Voids 4 1 - Labs CBC & Chem 7: 05/12/20 07:03 05/12/20 07:03 Labs: Abnormal Lab Results - Last 24 Hours (Table) 05/12/20 Range/Units 07:03 Hgb 12.9 L (13.0-17.5) gm/dL MCV 79.8 L (80.0-100.0) fL Plt Count 491 H (150-450) k/uL Neutrophils # 7.9 H (1.3-7.7) k/uL Lymphocytes # 0.9 L (1.0-4.8) k/uL ESR 82 H (0-15) mm/hr Microbiology - Last 24 Hours (Table) 05/10/20 13:27 Blood Culture - Preliminary Blood No Growth after 24 hours
--- NOTE | 2020-05-12 14:22 | P.PN ---
Subjective This is a pleasant 19 years old male with no significant past medical history. He states he follows with her doctor at [place] as a family doctor. Since March his been having mid abdominal pain and more to the right side that comes and goes as on and off, pain was sharp in character and increased by eating relieved by cast and passing bowel movement but it will not go away completely. [place] like 1-2/10 in severity associated with decreased appetite Sometimes he will have diarrhea but no blood. No mucus. It was relieved spontaneously bypass given however returned back to the week after so his parent's surgeon to come to the hospital. Patient denies other symptoms, no loss of weight or nausea or chest pain. No dyspnea. No coughing. No fever His nonsmoker, drinks alcohol occasionally. No illicit tracts On admission he has fever of 101.5 Has leukocytosis of 17.9 K, rest of CBC is unremarkable. Sodium 136, creatinine normal 0.7. Liver enzymes elevated. Lipase is normal at 58. C-reactive protein is elevated at 255. ESR is ordered and is pending. Stool studies as been requested. CT of the abdomen and pelvis showing interloop abscesses with associated inflammatory changes, correlate for possible colitis, Crohn's disease. 05/11/2020 Patient today with no abdominal pain, no diarrhea. He was kept nothing by mouth. He is hemodynamically stable Fever subsided and WBC trending down to 13.8 K. BMP is unremarkable. Patient remains on Zosyn with infectious disease on the case GI and surgery teams on the case 05/12/2020 Patient is awake looks comfortable however he has some abdominal discomfort and diarrhea once daily. No surgical plans for his abdominal abscesses. As surgery was consulted because WBC is back to normal. Currently the plan is To continue on Zosyn intravenously Patient is followed by ID team, surgery and GI team Objective - Vital Signs Vital signs: Vital Signs Temp 99.8 F H 05/12/20 13:16 Pulse 78 05/12/20 13:16 Resp 16 05/12/20 13:16 BP 134/79 05/12/20 13:16 Pulse Ox 100 05/12/20 13:16 Intake & Output 05/11/20 05/12/20 05/12/20 18:59 06:59 18:59 Weight 91.626 kg Other: Voiding Method Toilet Toilet # Voids 4 1 - Exam GENERAL: The patient is alert and oriented x3, not in any acute distress. Well developed, well nourished. HEENT: Pupils are round and equally reacting to light. EOMI. No scleral icterus. No conjunctival pallor. Normocephalic, atraumatic. No pharyngeal erythema. No thyromegaly. CARDIOVASCULAR: S1 and S2 present. No murmurs, rubs, or gallops. PULMONARY: Chest is clear to auscultation, no wheezing or crackles. ABDOMEN: Soft, nontender, nondistended, normoactive bowel sounds. No palpable organomegaly. MUSCULOSKELETAL: No joint swelling or deformity. EXTREMITIES: No cyanosis, clubbing, or pedal edema. NEUROLOGICAL: Gross neurological examination did not reveal any focal deficits. SKIN: No rashes. no petechiae. - Labs CBC & Chem 7: 05/12/20 07:03 05/12/20 07:03 Labs: Abnormal Lab Results - Last 24 Hours (Table) 05/12/20 05/12/20 Range/Units 07:03 07:03 Hgb 12.9 L (13.0-17.5) gm/dL MCV 79.8 L (80.0-100.0) fL Plt Count 491 H (150-450) k/uL Neutrophils # 7.9 H (1.3-7.7) k/uL Lymphocytes # 0.9 L (1.0-4.8) k/uL ESR 82 H (0-15) mm/hr BUN 5.0 L (9.0-27.0) mg/dL BUN/Creatinine Ratio 7.14 L (12.00-20.00) Ratio C-Reactive Protein 19.7 H (0.0-0.8) mg/dL Microbiology - Last 24 Hours (Table) 05/10/20 13:27 Blood Culture - Preliminary Blood No Growth after 24 hours Assessment and Plan Assessment: Gastroenteritis, especially terminal ileitis and ascending and transverse colitis suspicious for Crohn's disease Interloop abdominal abscesses measuring 3.7 x 1.5 cm and additional 2.3 cm abscess. Sepsis secondary to above Plan: This is a pleasant 19 years old male who presents with gastroenteritis and abdominal abscess. Continue with Zosyn. Follow-up culture results. Follow-up stool studies. GI and surgery consult Antibiotics as per ID team Labs and medication were reviewed.. Continue same treatment. Continue with symptomatic treatment. Resume home medication. Monitor lytes and vitals. DVT and GI prophylaxis. Further recommendations depends on the clinical course of the patient DVT prophylaxis: Subcutaneous lovenox GI Prophylaxis: Ppi
--- NOTE | 2020-05-12 15:26 | P.PN ---
Subjective Progress Note Date: 05/12/20 Principal diagnosis: Abdominal pain, abdominal abscess, Crohn's disease Patient seen and examined sitting up in bed. Patient was febrile this morning 100.7. He remains on IV antibiotics per infectious disease. He states he had a loose bowel movement this morning with some mucus noted. He states he has abdominal pain which he describes as mostly cramping in the lower abdomen mostly at night which does keep him up. Denies any nausea or vomiting. States he does feel like he has had some weight loss. Dr. Mckeon consult for second opinion per request from patient. Objective - Vital Signs Vital signs: Vital Signs Temp 99.8 F H 05/12/20 13:16 Pulse 78 05/12/20 13:16 Resp 16 05/12/20 13:16 BP 134/79 05/12/20 13:16 Pulse Ox 100 05/12/20 13:16 Intake & Output 05/11/20 05/12/20 05/12/20 18:59 06:59 18:59 Weight 91.626 kg Other: Voiding Method Toilet Toilet # Voids 4 1 - Exam General appearance: The patient is alert, oriented, in no acute distress. HET: Head is normocephalic and atraumatic. Conjunctiva pink. Sclera andicteric. Neck: Supple without lymphadenopathy. Abdomen: Soft, tenderness in right lower quadrant, nondistended with bowel sounds. No guarding or rigidity. Extremities: Normal skin color and turgor. No pedal edema Neurological: No focal deficits. Alert and oriented 3. - Labs CBC & Chem 7: 05/12/20 07:03 05/12/20 07:03 Labs: Abnormal Lab Results - Last 24 Hours (Table) 05/12/20 05/12/20 Range/Units 07:03 07:03 Hgb 12.9 L (13.0-17.5) gm/dL MCV 79.8 L (80.0-100.0) fL Plt Count 491 H (150-450) k/uL Neutrophils # 7.9 H (1.3-7.7) k/uL Lymphocytes # 0.9 L (1.0-4.8) k/uL ESR 82 H (0-15) mm/hr BUN 5.0 L (9.0-27.0) mg/dL BUN/Creatinine Ratio 7.14 L (12.00-20.00) Ratio C-Reactive Protein 19.7 H (0.0-0.8) mg/dL Microbiology - Last 24 Hours (Table) 05/10/20 13:27 Blood Culture - Preliminary Blood No Growth after 24 hours Assessment and Plan (1) Abdominal pain Narrative/Plan: 19-year-old male with no prior medical history who presented to the hospital with abdominal pain present over the past few months and worsening prior to presentation. She reported associated decreased oral intake and worsening of the pain with eating. He is continued to have bowel movements and denies any signs or symptoms GI bleeding although he does report some dark colored bowel movements. Patient did have leukocytosis on presentation with a WBC 17.9 and was noted to have a temperature of 101.5F. Currently the patient is on broad- spectrum antibiotic therapy. Computed tomography scan of the abdomen was significant for inflammatory changes of the terminal ileum and right colon as well as abscess formation. Unclear etiology of symptoms, however given presentation and findings on imaging concern is for Crohn's disease. Current Visit: Yes Status: Acute Code(s): R10.9 - UNSPECIFIED ABDOMINAL PAIN SNOMED Code(s): 60665928 (2) Intra-abdominal abscess Narrative/Plan: Interventional radiology unable to access abscess. General surgery is on consult, surgery on hold at this time as patient is undecided if he is to proceed with surgery versus medical management. Current Visit: Yes Status: Acute Code(s): K65.1 - PERITONEAL ABSCESS SNOMED Code(s): 76777760 Plan: Supportive care Diet per surgery recommendations Continue to monitor CBC, BMP, LFTs ESR and CRP ordered next line continue broad-spectrum antibiotic therapy Appreciate recommendations from infectious disease and surgical services No plan for any endoscopic intervention at this time IR service consult for possible drainage of abscess, unable to access abscess Will need close follow-up with gastroenterology after discharge Thank you for allowing us to participate in the care of the patient we will continue to follow I agree with the dictator's note, documented as a scribe by Lacie Meyer.
[2020-05-12] MEDS: ENOXAPARIN 40 MG/0.4 ML SYRINGE SQ SCH (15:56)
--- NOTE | 2020-05-13 00:54 | PN ---
PROGRESS NOTE DATE OF SERVICE: 05/12/2020 REASON FOR FOLLOWUP: Intraabdominal abscess. INTERVAL HISTORY: Patient did have a low-grade fever of 99.8 this afternoon. The patient afebrile since then. The patient overall is feeling better. The patient's abdominal pain is currently controlled. No chest pain, shortness of breath or cough and no diarrhea. PHYSICAL EXAMINATION: Blood pressure 146/85, pulse of 82, temperature 98.5. He is 100% on room air. General description is a young man lying in bed in no distress. Respiratory system: Unlabored breathing. Clear to auscultation anteriorly. Heart S1, S2. Regular rate and rhythm. ABDOMEN: Soft, no tenderness. LABS: White count normalized, it had come down to 19.7. Blood culture negative. DIAGNOSTIC IMPRESSION AND PLAN: Patient with interloop abdominal abscess. The patient clinically seems to be responding to Zosyn. However, we do not have reason for formation of this abscess . Continue the patient on Zosyn and monitor clinical course closely. MMODL / IJN: [id number] /
[2020-05-13] MEDS: PIPERACILLIN-TAZOBACTAM 3.375 GM in SODIUM CHLORIDE 0.9% 100 ML IVPB SCH ×3 (04:57→21:02)
[2020-05-13] MEDS: SODIUM CHLORIDE 0.9% 1,000 ML IV SCH ×2 (04:58→15:14)
[2020-05-13 07:58] LABS: Basophils % (A) 0 %; Eosinophils # (A) 0.1 k/uL (0-0.7); Eosinophils % (A) 1 %; HGB 11.7 gm/dL (13.0-17.5); Hypochromasia Slight; Lymphocytes % (A) 12 %; MCHC 30.8 g/dL (31.0-37.0); MCV 81.2 fL (80.0-100.0); Mean Platelet Volume 6.5; Monocytes # (A) 0.7 k/uL (0-1.0); Monocytes % (A) 8 %; Neutrophils # (A) 6.4 k/uL (1.3-7.7); Neutrophils % (A) 78 %; Platelet Count 487 k/uL (150-450); RBC 4.68 m/uL (4.30-5.90); RDW 14.2 % (11.5-15.5); WBC 8.3 k/uL (3.8-10.6)
[2020-05-13] MEDS: PANTOPRAZOLE 40 MG/10 ML VIAL IVP SCH (09:38)
--- NOTE | 2020-05-13 12:42 | P.PN ---
Progress Note - Text Progress Note Date: 05/13/20 The patient is improving. He is requesting more leak. On exam vital signs are stable. Abdomen soft. White count is normalized. He'll be placed on full liquid diet. We dysphagia discharge home Friday.
--- NOTE | 2020-05-13 13:51 | P.GSCN ---
History of Present Illness Consult date: 05/13/20 Reason for Consult: Second opinion History of present illness: Is a 19-year-old male presented to hospital with chief complaint of abdominal pain is found to have what appeared to be Crohn's isease with interloop abscess. Patient does not have a known diagnosed history of Crohn's. He states she's been having abdominal pain since April. He denies any bloody bowel movements in the past. He denies any cramping abdominal pain before this in the past. He has no family members with Crohn's. He has no significant past medical history is no significant past surgical history. IR was unable to drain the abscess due to its location. Initially surgery was considered however patient was then treated conservatively with antibiotics and improved. Past Medical History Past Medical History: No Reported History History of Any Multi-Drug Resistant Organisms: None Reported Past Surgical History: No Surgical Hx Reported Past Psychological History: No Psychological Hx Reported Smoking Status: Never smoker Past Alcohol Use History: Occasional Past Drug Use History: None Reported - Past Family History Father Family Medical History: Coronary Artery Disease (CAD), Diabetes Mellitus Medications and Allergies Home Medications Medication Instructions Recorded Confirmed Type No Known Home Medications 05/10/20 05/10/20 History Allergies Allergy/AdvReac Type Severity Reaction Status Date / Time No Known Allergies Allergy Verified 05/10/20 11:31 Surgical - Exam Osteopathic Statement: *. No significant issues noted on an osteopathic structural exam other than those noted in the History and Physical/Consult. Vital Signs Temp Pulse Resp BP Pulse Ox 100.3 F H 96 18 144/84 100 05/10/20 10:56 05/10/20 10:56 05/10/20 10:56 05/10/20 10:56 05/10/20 10:56 - General well developed, well nourished, no distress - Respiratory normal expansion, normal respiratory effort - Cardiovascular Rhythm: regular - Abdomen Abdomen: soft, non tender - Neurologic normal coordination, normal sensation - Psychiatric oriented to time, oriented to person, oriented to place Results - Labs 05/13/20 07:04 05/12/20 07:03 Abnormal Lab Results - Last 24 Hours (Table) 05/13/20 Range/Units 07:04 Hgb 11.7 L (13.0-17.5) gm/dL Hct 38.0 L (39.0-53.0) % MCHC 30.8 L (31.0-37.0) g/dL Plt Count 487 H (150-450) k/uL Microbiology - Last 24 Hours (Table) 05/12/20 21:50 Stool Culture - Preliminary Stool 05/10/20 13:27 Blood Culture - Preliminary Blood No Growth after 48 hours Assessment and Plan Assessment: Suspected Crohn's colitis with intra-abdominal abscess Plan: It appears patient is improved on antibiotics and bowel rest. I do not see any need for acute surgical intervention at this time and agree with the primary surgical opinion. I would avoid surgery in this suspected Crohn's patient since he is improving with conservative therapy. Continue antibiotics per ID. He's been a follow-up with GI. Patient also is a student at [employer] and he states he would like to establish care at the [employer] [facility] system upon discharge. No further surgical recommendation at this time. Please contact me directly with any further questions
[2020-05-13 13:52] LABS: African American GFR (CKD) 156.3 (60.0-200.0); Blood Urea Nitrogen <5.0 mg/dL (9.0-27.0); Calcium 8.8 mg/dL (8.7-10.3); Carbon Dioxide 25.7 mmol/L (21.6-31.8); Chloride 106 mmol/L (96-109); Glucose 89 mg/dL (70-110); Non-African American GFR(CKD) 134.9 (60.0-200.0); Sodium 139 mmol/L (135-145)
[2020-05-13 14:50] LABS: C Reactive Protein 16.3 mg/dL (0.0-0.8)
[2020-05-13 14:54] LABS: Erythrocyte Sedimentation Rate 91 mm/hr (0-15)
--- NOTE | 2020-05-13 16:56 | P.PN ---
Subjective This is a pleasant 19 years old male with no significant past medical history. He states he follows with her doctor at [place] as a family doctor. Since March his been having mid abdominal pain and more to the right side that comes and goes as on and off, pain was sharp in character and increased by eating relieved by cast and passing bowel movement but it will not go away completely. [place] like 1-2/10 in severity associated with decreased appetite Sometimes he will have diarrhea but no blood. No mucus. It was relieved spontaneously bypass given however returned back to the week after so his parent's surgeon to come to the hospital. Patient denies other symptoms, no loss of weight or nausea or chest pain. No dyspnea. No coughing. No fever His nonsmoker, drinks alcohol occasionally. No illicit tracts On admission he has fever of 101.5 Has leukocytosis of 17.9 K, rest of CBC is unremarkable. Sodium 136, creatinine normal 0.7. Liver enzymes elevated. Lipase is normal at 58. C-reactive protein is elevated at 255. ESR is ordered and is pending. Stool studies as been requested. CT of the abdomen and pelvis showing interloop abscesses with associated inflammatory changes, correlate for possible colitis, Crohn's disease. 05/11/2020 Patient today with no abdominal pain, no diarrhea. He was kept nothing by mouth. He is hemodynamically stable Fever subsided and WBC trending down to 13.8 K. BMP is unremarkable. Patient remains on Zosyn with infectious disease on the case GI and surgery teams on the case 05/12/2020 Patient is awake looks comfortable however he has some abdominal discomfort and diarrhea once daily. No surgical plans for his abdominal abscesses. As surgery was consulted because WBC is back to normal. Currently the plan is To continue on Zosyn intravenously Patient is followed by ID team, surgery and GI team 05/13/2020 Patient clinically is doing well with only minimal abdominal discomfort and even is improving his most area is more soft today and is looking improving as well Patient is discussed with primary surgery team consult and they recommended to continue with IV antibiotics for now, secondary surgery opening and is also appreciated and they recommended the same patient is not ready to be switched to oral antibiotics yet, it was explained to him and he agrees Continue with IV Zosyn Objective - Vital Signs Vital signs: Vital Signs Temp 98.6 F 05/13/20 14:00 Pulse 68 12/12/20 14:00 Resp 18 05/13/20 14:00 BP 138/85 05/13/20 14:00 Pulse Ox 100 05/13/20 14:00 Intake & Output 05/12/20 05/13/20 05/13/20 18:59 06:59 18:59 Intake Total 1560 Balance 1560 Weight 91.626 kg Intake: Intake, IV Titration 1560 Amount Sodium Chloride 0.9% 1, 1560 000 ml @ 75 mls/hr IV . [id number] [facility] Rx#:[id number] Other: Voiding Method Toilet Toilet Toilet # Voids 1 # Bowel Movements 1 - Exam GENERAL: The patient is alert and oriented x3, not in any acute distress. Well developed, well nourished. HEENT: Pupils are round and equally reacting to light. EOMI. No scleral icterus. No conjunctival pallor. Normocephalic, atraumatic. No pharyngeal erythema. No thyromegaly. CARDIOVASCULAR: S1 and S2 present. No murmurs, rubs, or gallops. PULMONARY: Chest is clear to auscultation, no wheezing or crackles. ABDOMEN: Soft, nontender, nondistended, normoactive bowel sounds. No palpable organomegaly. MUSCULOSKELETAL: No joint swelling or deformity. EXTREMITIES: No cyanosis, clubbing, or pedal edema. NEUROLOGICAL: Gross neurological examination did not reveal any focal deficits. SKIN: No rashes. no petechiae. - Labs CBC & Chem 7: 05/13/20 07:04 05/13/20 07:04 Labs: Abnormal Lab Results - Last 24 Hours (Table) 05/13/20 05/13/20 Range/Units 07:04 07:04 Hgb 11.7 L (13.0-17.5) gm/dL Hct 38.0 L (39.0-53.0) % MCHC 30.8 L (31.0-37.0) g/dL Plt Count 487 H (150-450) k/uL ESR 91 H (0-15) mm/hr BUN <5.0 L (9.0-27.0) mg/dL C-Reactive Protein 16.3 H (0.0-0.8) mg/dL Microbiology - Last 24 Hours (Table) 05/10/20 13:27 Blood Culture - Preliminary Blood No Growth after 72 hours 05/12/20 21:50 Stool Culture - Preliminary Stool Assessment and Plan Assessment: Gastroenteritis, especially terminal ileitis and ascending and transverse colitis suspicious for Crohn's disease Interloop abdominal abscesses measuring 3.7 x 1.5 cm and additional 2.3 cm abscess. Sepsis secondary to above Plan: This is a pleasant 19 years old male who presents with gastroenteritis and abdominal abscess. Continue with Zosyn. Follow-up culture results. Follow-up stool studies. GI and surgery consult Antibiotics as per ID team Labs and medication were reviewed.. Continue same treatment. Continue with symptomatic treatment. Resume home medication. Monitor lytes and vitals. DVT and GI prophylaxis. Further recommendations depends on the clinical course of the patient DVT prophylaxis: Subcutaneous lovenox GI Prophylaxis: Ppi
--- NOTE | 2020-05-13 20:42 | P.PN ---
Subjective Progress Note Date: 05/13/20 Principal diagnosis: Abdominal pain, intraabdominal abscess Patient feeling better, with no fevers and less abdominal pain. He had 2 small bowel movements this morning. Objective - Vital Signs Vital signs: Vital Signs Temp 98.6 F 05/13/20 14:00 Pulse 68 05/13/20 14:00 Resp 18 05/13/20 14:00 BP 138/85 05/13/20 14:00 Pulse Ox 100 05/13/20 14:00 Intake & Output 05/12/20 05/13/20 05/13/20 18:59 06:59 18:59 Intake Total 1560 Balance 1560 Weight 91.626 kg Intake: Intake, IV Titration 1560 Amount Sodium Chloride 0.9% 1, 1560 000 ml @ 75 mls/hr IV . [id number] [facility] Rx#:[id number] Other: Voiding Method Toilet Toilet Toilet # Voids 1 # Bowel Movements 1 - Exam On physical examination, patient appears comfortable in no apparent distress. HEAD: Normocephalic, atraumatic. EYES: No scleral icterus. No conjunctival injection. MOUTH: No lesions, tongue midline. NECK: Trachea midline, no gross abnormalities. ABDOMEN: Soft, mildly tender to palpation. Bowel sounds are positive. No organomegaly. No guarding or rigidity. EXTREMITIES: No pedal edema. SKIN: No rashes, no jaundice. NEUROLOGIC: Alert and oriented x3. No focal deficits. - Labs CBC & Chem 7: 05/13/20 07:04 05/13/20 07:04 Labs: Abnormal Lab Results - Last 24 Hours (Table) 05/13/20 05/13/20 Range/Units 07:04 07:04 Hgb 11.7 L (13.0-17.5) gm/dL Hct 38.0 L (39.0-53.0) % MCHC 30.8 L (31.0-37.0) g/dL Plt Count 487 H (150-450) k/uL BUN <5.0 L (9.0-27.0) mg/dL Microbiology - Last 24 Hours (Table) 05/12/20 21:50 Stool Culture - Preliminary Stool 05/10/20 13:27 Blood Culture - Preliminary Blood No Growth after 48 hours Assessment and Plan (1) Abdominal pain Narrative/Plan: 19-year-old male with no prior medical history who presented to the hospital with abdominal pain present over the past few months and worsening prior to presentation. She reported associated decreased oral intake and worsening of the pain with eating. He is continued to have bowel movements and denies any signs or symptoms GI bleeding although he does report some dark colored bowel movements. Patient did have leukocytosis on presentation with a WBC 17.9 and was noted to have a temperature of 101.5F. Currently the patient is on broad- spectrum antibiotic therapy. Computed tomography scan of the abdomen was significant for inflammatory changes of the terminal ileum and right colon as well as abscess formation. Unclear etiology of symptoms, however given presentation and findings on imaging concern is for Crohn's disease. Current Visit: Yes Status: Acute Code(s): R10.9 - UNSPECIFIED ABDOMINAL PAIN SNOMED Code(s): 98741251 (2) Intra-abdominal abscess Current Visit: Yes Status: Acute Code(s): K65.1 - PERITONEAL ABSCESS SNOMED Code(s): 05082915 Plan: Supportive care Tolerating liquids Continue monitor CBC, BMP, LFTs ESR and CRP elevated Continue broad-spectrum antibiotic therapy, ID service following Surgical service is following Extensive discussion with the patient regarding findings and presentation, at this time risk for endoscopic evaluation and complications of the procedure are increased in the setting of abscess formation and will continue medical management at this time IR service consult for possible drainage of the abscess, however drainage not possible Thank you for allowing us to participate in the care of the patient we will continue to follow
--- NOTE | 2020-05-13 23:48 | PN ---
PROGRESS NOTE DATE OF SERVICE: 05/13/2020 REASON FOR FOLLOWUP: Intraabdominal abscess. INTERVAL HISTORY: Patient is currently afebrile patient is breathing comfortably. Overall abdominal pain has improved. No chest pain, shortness of breath or cough. No diarrhea. PHYSICAL EXAMINATION: Blood pressure 132/85, pulse of 87, temperature 98.8. He is 99% on room air. General description: The patient is a middle-aged male lying in bed in no distress. Respiratory system: Unlabored breathing. Clear to auscultation anteriorly. Heart S1, S2. Regular rate and rhythm. ABDOMEN: Soft, no tenderness. LABS: Hemoglobin 11.7, white count of 8.3, BUN of 5, creatinine 0.7. DIAGNOSTIC IMPRESSION AND PLAN: Patient with abdominal abscess in this patient clinically responding to Zosyn. Will recommend obtaining a CT on Friday. If overall improvement, we will get a midline and continue with IV Zosyn outpatient for at least 2 weeks and close outpatient followup. MMODL / IJN: [id number] /
[2020-05-14] MEDS: ACETAMINOPHEN TAB 325 MG TAB PO PRN (02:02)
[2020-05-14] MEDS: PIPERACILLIN-TAZOBACTAM 3.375 GM in SODIUM CHLORIDE 0.9% 100 ML IVPB SCH ×3 (04:46→20:11)
[2020-05-14] MEDS: SODIUM CHLORIDE 0.9% 1,000 ML IV SCH ×2 (04:47→20:14)
[2020-05-14 06:04] LABS: Basophils % (A) 0 %; Eosinophils # (A) 0.2 k/uL (0-0.7); Eosinophils % (A) 2 %; HCT 37.8 % (39.0-53.0); HGB 11.7 gm/dL (13.0-17.5); Hypochromasia Slight; Lymphocytes # (A) 1.2 k/uL (1.0-4.8); Lymphocytes % (A) 14 %; MCH 24.7 pg (25.0-35.0); MCHC 30.8 g/dL (31.0-37.0); MCV 80.2 fL (80.0-100.0); Mean Platelet Volume 6.1; Monocytes # (A) 0.7 k/uL (0-1.0); Monocytes % (A) 8 %; Neutrophils # (A) 6.3 k/uL (1.3-7.7); Neutrophils % (A) 74 %; Platelet Count 501 k/uL (150-450); RBC 4.71 m/uL (4.30-5.90); WBC 8.6 k/uL (3.8-10.6)
[2020-05-14] MEDS: PANTOPRAZOLE 40 MG/10 ML VIAL IVP SCH (08:23)
[2020-05-14 10:18] LABS: Blood Urea Nitrogen <5.0 mg/dL (9.0-27.0); Carbon Dioxide 26.1 mmol/L (21.6-31.8); Chloride 104 mmol/L (96-109); Glucose 88 mg/dL (70-110); Non-African American GFR(CKD) 127.7 (60.0-200.0); Potassium 4.1 mmol/L (3.5-5.5); Sodium 139 mmol/L (135-145)
--- NOTE | 2020-05-14 11:58 | P.PN ---
Progress Note - Text Progress Note Date: 05/14/20 The patient feels better. He is tolerating full liquids. On exam her vital signs are stable. Abdomen soft. There is some mild tenderness throughout. There is no rebound or guarding. Improving sepsis related to interloop abscess. Patient will undergo repeat CAT scan in the a.m. We anticipate him going home on IV antibiotics next 24-48 hours
[2020-05-14] MEDS ORDERED: LIDOCAINE 5% PATCH TOPICAL SCH (16:15)
--- NOTE | 2020-05-14 18:11 | P.PN ---
Subjective Progress Note Date: 05/14/20 Principal diagnosis: Abdominal pain, intraabdominal abscess Patient feeling better, with no fevers and less abdominal pain. He is reporting some loose bowel movements today. He has tolerated advancement in his diet. Objective - Vital Signs Vital signs: Vital Signs Temp 98 F 05/14/20 08:00 Pulse 74 05/14/20 08:00 Resp 16 05/14/20 08:00 BP 136/82 05/14/20 08:00 Pulse Ox 100 05/14/20 08:00 Intake & Output 05/13/20 05/14/20 05/14/20 18:59 06:59 18:59 Intake Total 2430 480 Balance 2430 480 Intake: Intake, IV Titration 1000 Amount Piperacillin-Tazobactam 3 100 .375 gm In Sodium Chloride 0.9% 100 ml @ 25 mls/hr IVPB Q8H [facility] Rx#: [id number] Sodium Chloride 0.9% 1, 900 000 ml @ 75 mls/hr IV . [id number] [facility] Rx#:[id number] Oral 1430 480 Other: Voiding Method Toilet Toilet Toilet # Voids 3 1 - Exam On physical examination, patient appears comfortable in no apparent distress. HEAD: Normocephalic, atraumatic. EYES: No scleral icterus. No conjunctival injection. MOUTH: No lesions, tongue midline. NECK: Trachea midline, no gross abnormalities. ABDOMEN: Soft, mildly tender to palpation. Bowel sounds are positive. No organomegaly. No guarding or rigidity. EXTREMITIES: No pedal edema. SKIN: No rashes, no jaundice. NEUROLOGIC: Alert and oriented x3. No focal deficits. - Labs CBC & Chem 7: 05/14/20 05:38 05/14/20 05:38 Labs: Abnormal Lab Results - Last 24 Hours (Table) 05/13/20 05/13/20 05/14/20 Range/Units 07:04 07:04 05:38 Hgb 11.7 L (13.0-17.5) gm/dL Hct 37.8 L (39.0-53.0) % MCH 24.7 L (25.0-35.0) pg MCHC 30.8 L (31.0-37.0) g/dL Plt Count 501 H (150-450) k/uL ESR 91 H (0-15) mm/hr BUN <5.0 L (9.0-27.0) mg/dL C-Reactive Protein 16.3 H (0.0-0.8) mg/dL 05/14/20 Range/Units 05:38 Hgb (13.0-17.5) gm/dL Hct (39.0-53.0) % MCH (25.0-35.0) pg MCHC (31.0-37.0) g/dL Plt Count (150-450) k/uL ESR (0-15) mm/hr BUN <5.0 L (9.0-27.0) mg/dL C-Reactive Protein (0.0-0.8) mg/dL Microbiology - Last 24 Hours (Table) 05/10/20 13:27 Blood Culture - Preliminary Blood No Growth after 72 hours Assessment and Plan (1) Abdominal pain Narrative/Plan: 19-year-old male with no prior medical history who presented to the hospital with abdominal pain present over the past few months and worsening prior to presentation. She reported associated decreased oral intake and worsening of the pain with eating. He is continued to have bowel movements and denies any signs or symptoms GI bleeding although he does report some dark colored bowel movements. Patient did have leukocytosis on presentation with a WBC 17.9 and was noted to have a temperature of 101.5F. Currently the patient is on broad- spectrum antibiotic therapy. Computed tomography scan of the abdomen was significant for inflammatory changes of the terminal ileum and right colon as well as abscess formation. Unclear etiology of symptoms, however given presentation and findings on imaging concern is for Crohn's disease. Current Visit: Yes Status: Acute Code(s): R10.9 - UNSPECIFIED ABDOMINAL PAIN SNOMED Code(s): 70021768 (2) Intra-abdominal abscess Current Visit: Yes Status: Acute Code(s): K65.1 - PERITONEAL ABSCESS SNOMED Code(s): 20483815 Plan: Supportive care Tolerating liquids Continue monitor CBC, BMP, LFTs ESR and CRP elevated Continue broad-spectrum antibiotic therapy, ID service following Surgical service is following and ordered a repeat computed tomography scan for tomorrow Patient will need to follow-up with the GI service after discharge either locally or at the [facility] Thank you for allowing us to participate in the care of the patient we will continue to follow
[2020-05-14] MEDS: LIDOCAINE 5% PATCH TOPICAL SCH (20:10)
--- NOTE | 2020-05-14 20:46 | P.PN ---
Subjective This is a pleasant 19 years old male with no significant past medical history. 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 Since March his been having mid abdominal pain and more to the right side that comes and goes as on and off, pain was sharp in character and increased by eating relieved by cast and passing bowel movement but it will not go away completely. [place] like 1-2/10 in severity associated with decreased appetite Sometimes he will have diarrhea but no blood. No mucus. It was relieved spontaneously bypass given however returned back to the week after so his parent's surgeon to come to the hospital. Patient denies other symptoms, no loss of weight or nausea or chest pain. No dyspnea. No coughing. No fever His nonsmoker, drinks alcohol occasionally. No illicit tracts On admission he has fever of 101.5 Has leukocytosis of 17.9 K, rest of CBC is unremarkable. Sodium 136, creatinine normal 0.7. Liver enzymes elevated. Lipase is normal at 58. C-reactive protein is elevated at 255. ESR is ordered and is pending. Stool studies as been requested. CT of the abdomen and pelvis showing interloop abscesses with associated inflammatory changes, correlate for possible colitis, Crohn's disease. 05/11/2020 Patient today with no abdominal pain, no diarrhea. He was kept nothing by mouth. He is hemodynamically stable Fever subsided and WBC trending down to 13.8 K. BMP is unremarkable. Patient remains on Zosyn with infectious disease on the case GI and surgery teams on the case 05/12/2020 Patient is awake looks comfortable however he has some abdominal discomfort and diarrhea once daily. No surgical plans for his abdominal abscesses. As surgery was consulted because WBC is back to normal. Currently the plan is To continue on Zosyn intravenously Patient is followed by ID team, surgery and GI team 05/13/2020 Patient clinically is doing well with only minimal abdominal discomfort and even is improving his most area is more soft today and is looking improving as well Patient is discussed with primary surgery team consult and they recommended to continue with IV antibiotics for now, secondary surgery opening and is also appreciated and they recommended the same patient is not ready to be switched to oral antibiotics yet, it was explained to him and he agrees Continue with IV Zosyn 05/14/2020 Patient with slight worsening of his abdominal pain and diarrhea today, twice at bowel movements this morning Also was complaining of from low back pain, most likely musculoskeletal, I talked to the nurse to start [place] but looks like he does not want that and decreased with topical measures only, lidocaine patches ordered, patient is mobile in the hallway. abs are stable and C. diff is negativen Remains on IV Zosy l I discussed with surgery team, no plan for surgical intervention now We will discuss with infectious disease further plan consult dietitian upon patient request and home health care Objective - Vital Signs Vital signs: Vital Signs Temp 98.5 F 05/14/20 14:00 Pulse 73 05/14/20 14:00 Resp 17 05/14/20 14:00 BP 137/88 05/14/20 14:00 Pulse Ox 100 05/14/20 14:00 Intake & Output 05/13/20 05/14/20 05/14/20 18:59 06:59 18:59 Intake Total 2430 480 Balance 2430 480 Intake: Intake, IV Titration 1000 Amount Piperacillin-Tazobactam 3 100 .375 gm In Sodium Chloride 0.9% 100 ml @ 25 mls/hr IVPB Q8H [facility] Rx#: [id number] Sodium Chloride 0.9% 1, 900 000 ml @ 75 mls/hr IV . [id number] [facility] Rx#:[id number] Oral 1430 480 Other: Voiding Method Toilet Toilet Toilet # Voids 3 1 - Exam GENERAL: The patient is alert and oriented x3, not in any acute distress. Well developed, well nourished. HEENT: Pupils are round and equally reacting to light. EOMI. No scleral icterus. No conjunctival pallor. Normocephalic, atraumatic. No pharyngeal erythema. No thyromegaly. CARDIOVASCULAR: S1 and S2 present. No murmurs, rubs, or gallops. PULMONARY: Chest is clear to auscultation, no wheezing or crackles. ABDOMEN: Soft, nontender, nondistended, normoactive bowel sounds. No palpable organomegaly. MUSCULOSKELETAL: No joint swelling or deformity. EXTREMITIES: No cyanosis, clubbing, or pedal edema. NEUROLOGICAL: Gross neurological examination did not reveal any focal deficits. SKIN: No rashes. no petechiae. - Labs CBC & Chem 7: 05/14/20 05:38 05/14/20 05:38 Labs: Abnormal Lab Results - Last 24 Hours (Table) 05/14/20 05/14/20 Range/Units 05:38 05:38 Hgb 11.7 L (13.0-17.5) gm/dL Hct 37.8 L (39.0-53.0) % MCH 24.7 L (25.0-35.0) pg MCHC 30.8 L (31.0-37.0) g/dL Plt Count 501 H (150-450) k/uL BUN <5.0 L (9.0-27.0) mg/dL Microbiology - Last 24 Hours (Table) 05/10/20 13:27 Blood Culture - Preliminary Blood No Growth after 96 hours Assessment and Plan Assessment: Gastroenteritis, especially terminal ileitis and ascending and transverse colit is suspicious for Crohn's disease Interloop abdominal abscesses measuring 3.7 x 1.5 cm and additional 2.3 cm abscess. Sepsis secondary to above Plan: This is a pleasant 19 years old male who presents with gastroenteritis and abdominal abscess. Continue with Zosyn. Follow-up culture results. Follow-up stool studies. GI and surgery consult Antibiotics as per ID team Labs and medication were reviewed.. Continue same treatment. Continue with symptomatic treatment. Resume home medication. Monitor lytes and vitals. DVT and GI prophylaxis. Further recommendations depends on the clinical course of the patient DVT prophylaxis: Subcutaneous lovenox GI Prophylaxis: Ppi
--- NOTE | 2020-05-15 01:09 | PN ---
PROGRESS NOTE DATE OF SERVICE: 05/14/2020 REASON FOR FOLLOWUP: Intra-abdominal abscess. INTERVAL HISTORY: The patient is currently afebrile. The patient is feeling better. Breathing comfortably. The patient overall abdominal pain has improved. No chest pain, shortness of breath or cough. No diarrhea. PHYSICAL EXAMINATION: Blood pressure 142/87, pulse of 73, temperature 97.9. He is 100% on room air. General description is a young male up in the room in no distress. RESPIRATORY SYSTEM: Unlabored breathing, clear to auscultation anteriorly. HEART: S1, S2. Regular rate and rhythm. ABDOMEN: Soft. No tenderness. LABS: Hemoglobin 11.7, white count 8.6, BUN of 5, creatinine 0.8. Blood culture negative. DIAGNOSTIC IMPRESSION AND PLAN: Patient with intra-abdominal loop abscess in this patient being treated medically. The patient overall white count normalized. We will repeat a CT of abdomen and pelvis tomorrow. If overall improvement, plan on getting a Midline for outpatient IV Zosyn for another 10 days and close outpatient followup. MMODL / IJN: [id number] /
[2020-05-15] MEDS: ACETAMINOPHEN TAB 325 MG TAB PO PRN (01:28)
[2020-05-15] MEDS: PIPERACILLIN-TAZOBACTAM 3.375 GM in SODIUM CHLORIDE 0.9% 100 ML IVPB SCH ×2 (05:19→13:04)
[2020-05-15 05:47] LABS: Basophils % (A) 0 %; Eosinophils # (A) 0.1 k/uL (0-0.7); Eosinophils % (A) 1 %; HCT 37.2 % (39.0-53.0); Lymphocytes # (A) 1.2 k/uL (1.0-4.8); Lymphocytes % (A) 12 %; MCH 25.9 pg (25.0-35.0); MCHC 32.2 g/dL (31.0-37.0); MCV 80.5 fL (80.0-100.0); Mean Platelet Volume 6.1; Monocytes # (A) 0.6 k/uL (0-1.0); Monocytes % (A) 6 %; Neutrophils # (A) 7.6 k/uL (1.3-7.7); Neutrophils % (A) 79 %; Platelet Count 485 k/uL (150-450); RBC 4.62 m/uL (4.30-5.90); RDW 14.1 % (11.5-15.5); WBC 9.7 k/uL (3.8-10.6)
[2020-05-15 07:13] LABS: Erythrocyte Sedimentation Rate 70 mm/hr (0-15)
[2020-05-15] MEDS: IOPAMIDOL CONTRAST (ORAL USE) VIAL PO PRN ×2 (08:04→09:16)
[2020-05-15] MEDS: PANTOPRAZOLE 40 MG/10 ML VIAL IVP SCH (08:04)
[2020-05-15] MEDS: SODIUM CHLORIDE 0.9% 1,000 ML IV SCH ×2 (08:13→21:52)
[2020-05-15 09:31] LABS: African American GFR (CKD) 156.3 (60.0-200.0); Blood Urea Nitrogen <5.0 mg/dL (9.0-27.0); C Reactive Protein 8.1 mg/dL (0.0-0.8); Calcium 9.1 mg/dL (8.7-10.3); Carbon Dioxide 26.4 mmol/L (21.6-31.8); Chloride 106 mmol/L (96-109); Glucose 99 mg/dL (70-110); Non-African American GFR(CKD) 134.9 (60.0-200.0); Potassium 4.5 mmol/L (3.5-5.5); Sodium 141 mmol/L (135-145)
[2020-05-15 11:31] VITALS: BMI 28.1
--- NOTE | 2020-05-15 12:10 | CT ---
EXAMINATION TYPE: CT abdomen pelvis w con DATE OF EXAM: 05/15/2020 COMPARISON: CT abdomen and pelvis 5 days ago HISTORY: F/U Abscess CT DLP: 610.9 mGycm, Automated Exposure Control for Dose Reduction was Utilized. CONTRAST: CT scan of the abdomen and pelvis is performed with oral and with IV Contrast, patient injected with 100 mL of Isovue 300. Delayed imaging not done due to patient's age. FINDINGS: LUNG BASES: No significant abnormality is appreciated. LIVER/GB: No significant abnormality is appreciated. PANCREAS: No significant abnormality is seen. SPLEEN: No significant abnormality is seen. ADRENALS: No significant abnormality is seen. KIDNEYS: No significant abnormality is seen. BOWEL: Oral contrast reaches level of the transverse colon on current study. Evaluation of distal bow el slightly suboptimal. No suspicious small or large bowel dilatation currently. Persistent poor visu alization of the terminal ileum and ileocecal valve with severe wall thickening at this level and mod erate surrounding ill-defined fluid and fat stranding in the right lower quadrant. Persistent abnorma l fluid and fat stranding into the central mesentery with foci of air and adjacent prominent mesenter ic lymph nodes. Overall degree of surrounding inflammatory change slightly improved from prior. The f ocal 2.3 cm central fluid collection is improved now measuring 1.1 cm on image 54 with nondependent a ir. Normal or abnormal appendix not clearly identified. PROSTATE/SEMINAL VESICLES: No gross abnormality seen. LYMPH NODES: No greater than 1cm abdominal or pelvic lymph nodes are appreciated. OSSEOUS STRUCTURES: No significant abnormality is seen. OTHER: Moderate amount of free fluid in pelvis axial image 73 increased from prior. IMPRESSION: Some interval improvement in moderate to severe inflammatory change involving distal ileu m and cecum with mesenteric spread and adenopathy as detailed above. Consider perforated appendicitis as possible etiology or severe Crohn's disease exacerbation. Consider surgical exploration.
--- NOTE | 2020-05-15 12:12 | P.PN ---
Subjective Progress Note Date: 05/15/20 Principal diagnosis: Abdominal pain, abdominal abscess, Crohn's disease This is a 19-year-old male patient who came in with acute abdominal pain with diarrhea. He states symptoms likely started towards the end of March early April that Better, however the last 1-2 weeks progressively Worse. He had a CT at of the abdomen and pelvis which showed interloop abscesses. He has been on IV antibiotics per recommendations from infectious disease. Surgery is been on consult. He stated that he was having some improvement in his pain, however he states the last 1-2 days his pain has been getting worse. It is radiating into his back. He states he has been afebrile through the night, states he does not believe he had a fever through the weekend. He is still having loose bowel movements anywhere between 2-3 a day. He denies any blood in the stool, but states there is some mucus. His pain seems to be worse at night. He had a repeat CT of the abdomen done today, results are pending. Objective - Vital Signs Vital signs: Vital Signs Temp 97.9 F 05/15/20 08:00 Pulse 71 05/15/20 08:00 Resp 16 05/15/20 08:00 BP 131/80 05/15/20 08:00 Pulse Ox 100 05/15/20 08:00 Intake & Output 05/14/20 05/15/20 05/15/20 18:59 06:59 18:59 Intake Total 300 500 Balance 300 500 Weight 91.626 kg Intake: Oral 300 500 Other: Voiding Method Toilet Toilet - Exam General appearance: The patient is alert, oriented, in no acute distress. HET: Head is normocephalic and atraumatic. Conjunctiva pink. Sclera an dicteric. Neck: Supple without lymphadenopathy. Abdomen: Soft, tenderness in right lower quadrant, nondistended with bowel sounds. No guarding or rigidity. Extremities: Normal skin color and turgor. No pedal edema Neurological: No focal deficits. Alert and oriented 3. - Labs CBC & Chem 7: 05/15/20 05:12 05/15/20 05:12 Labs: Abnormal Lab Results - Last 24 Hours (Table) 05/15/20 05/15/20 Range/Units 05:12 05:12 Hgb 12.0 L (13.0-17.5) gm/dL Hct 37.2 L (39.0-53.0) % Plt Count 485 H (150-450) k/uL ESR 70 H (0-15) mm/hr BUN <5.0 L (9.0-27.0) mg/dL C-Reactive Protein 8.1 H (0.0-0.8) mg/dL Microbiology - Last 24 Hours (Table) 05/12/20 21:50 Stool Culture - Preliminary Stool 05/10/20 13:27 Blood Culture - Preliminary Blood No Growth after 96 hours Assessment and Plan (1) Abdominal pain Narrative/Plan: 19-year-old male with no prior medical history who presented to the hospital with abdominal pain present over the past few months and worsening prior to presentation. She reported associated decreased oral intake and worsening of the pain with eating. He is continued to have bowel movements and denies any signs or symptoms GI bleeding although he does report some dark colored bowel movements. Patient did have leukocytosis on presentation with a WBC 17.9 and was noted to have a temperature of 101.5F. Currently the patient is on broad- spectrum antibiotic therapy. Computed tomography scan of the abdomen was significant for inflammatory changes of the terminal ileum and right colon as well as abscess formation. Unclear etiology of symptoms, however given presentation and findings on imaging concern is for Crohn's disease. Current Visit: Yes Status: Acute Code(s): R10.9 - UNSPECIFIED ABDOMINAL PAIN SNOMED Code(s): 11122916 (2) Intra-abdominal abscess Narrative/Plan: Interventional radiology unable to access abscess. General surgery is on consult, she requested second opinion from Dr. barboza. There are no plans for any acute surgical intervention during this hospitalization. Repeat CT of the abdomen pending results. Current Visit: Yes Status: Acute Code(s): K65.1 - PERITONEAL ABSCESS SNOM ED Code(s): 92126061 Plan: Supportive care Tolerating liquids, advance diet per surgical recommendations Continue monitor CBC, BMP, LFTs ESR and CRP elevated, trending down Continue broad-spectrum antibiotic therapy, ID service following Surgical service is following and ordered a repeat computed tomography scan, results pending He would like to follow-up with an outpatient colorectal surgeon Patient will need to follow-up with the GI service after discharge either locally or at the [facility] Thank you for allowing us to participate in the care of the patient we will continue to follow Dr. Benavides I agree with the dictator's note, documented as a scribe by Lacie Meyer.
--- NOTE | 2020-05-15 12:48 | P.PN ---
Subjective Progress Note Date: 05/15/20 CHIEF COMPLAINT: Right lower quadrant abdominal pain HISTORY OF PRESENT ILLNESS: Patient is followed for intra-abdominal abscess. He reports that he is feeling better. His abdominal pain is improving. He complained of lower abdominal pain with lower back pain. He remains afebrile. WBC is 9.7. Currently on a full liquid diet. CT of the abdomen and pelvis some interval improvement in moderate to severe inflammatory change involving the distal ileum and cecum with mesenteric spread and adenopathy. Consider perforated appendicitis as possible etiology or severe Crohn's disease exacerbation. PHYSICAL EXAM: VITAL SIGNS: Reviewed. GENERAL: Well-developed in no acute distress. HEENT: No sclera icterus. Extraocular movements grossly intact. Moist buccal mucosa. Head is atraumatic, normocephalic. ABDOMEN: Soft. Nondistended. Right lower quadrant tenderness with palpation NEUROLOGIC: Alert and oriented. Cranial nerves II through XII grossly intact. ASSESSMENT: 1. Intra-abdominal abscess 2. Possible Crohn's disease. Being followed by GI service 3. Abdominal pain PLAN: -Treating patient conservatively -Continue IV antibiotics -Continue full liquid diet -Order Midline for outpatient antibiotics -No surgical intervention planned. Patient's symptoms are improving. 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 Signing provider agrees with the documented findings, assessment, and plan of care. Objective - Vital Signs Vital signs: Vital Signs Temp 97.9 F 05/15/20 08:00 Pulse 71 05/15/20 08:00 Resp 16 05/15/20 08:00 BP 131/80 05/15/20 08:00 Pulse Ox 100 05/15/20 08:00 Intake & Output 05/14/20 05/15/20 05/15/20 18:59 06:59 18:59 Intake Total 300 500 Balance 300 500 Weight 91.626 kg Intake: Oral 300 500 Other: Voiding Method Toilet Toilet - Labs CBC & Chem 7: 05/15/20 05:12 05/15/20 05:12 Labs: Abnormal Lab Results - Last 24 Hours (Table) 05/15/20 05/15/20 Range/Units 05:12 05:12 Hgb 12.0 L (13.0-17.5) gm/dL Hct 37.2 L (39.0-53.0) % Plt Count 485 H (150-450) k/uL ESR 70 H (0-15) mm/hr BUN <5.0 L (9.0-27.0) mg/dL C-Reactive Protein 8.1 H (0.0-0.8) mg/dL Microbiology - Last 24 Hours (Table) 05/12/20 21:50 Stool Culture - Preliminary Stool 05/10/20 13:27 Blood Culture - Preliminary Blood No Growth after 96 hours
[2020-05-15] MEDS ORDERED: IBUPROFEN 400 MG TAB PO PRN (13:05)
[2020-05-15] MEDS ORDERED: ERTAPENEM 1 GM in SODIUM CHLORIDE 0.9% 50 ML IVPB STA (14:11)
--- NOTE | 2020-05-15 14:14 | P.PN ---
Subjective Progress Note Date: 05/15/20 HISTORY OF PRESENT ILLNESS This is a 19-year-old male patient admitted to the hospital for intra-abdominal abscess being treated conservatively with IV antibiotics in form of Zosyn. Patient denies abdominal pain states is controlled today. No nausea or vomiting. WBC 9.7. Patient is currently tolerating a full liquid diet. Repeat CAT scan of the abdomen and pelvis revealed improvement and moderate to severe inflammatory change involving the distal ileum and cecum with mesenteric spread and adenopathy. Consider perforated appendicitis as possible etiology or severe Crohn's disease exacerbation. Consider surgical expiration. Patient is been afebrile, heart rate 71, blood pressure 131/80, pulse ox 100% on room air. Surgery is planning to continue conservative management. PHYSICAL EXAMINATION Gen: This is a 19-year-old male. He is sitting up in a chair in his room and appears to be comfortable and in no acute distress. HEENT: Head is atraumatic, normocephalic. Pupils equal, round. Sclerae is anicteric. NECK: Supple. No JVD. No lymphadenopathy. LUNGS: Clear to auscultation. No wheezes or rhonchi. No intercostal retractions. HEART: Regular rate and rhythm. No murmur. ABDOMEN: Soft. Bowel sounds are present. No masses. Mild right lower quadrant tenderness. EXTREMITIES: No pedal edema. No calf tenderness. NEUROLOGICAL: Patient is awake, alert and oriented x3. ASSESSMENT Intra-abdominal abscess PLAN Midline ordered for outpatient IV antibiotics Stop Zosyn and give 1 dose of Invanz today Invanz 1 g daily for 2 weeks as an outpatient. The above dictated assessment and findings were discussed with Dr. Neff. The impression and plan of care have been directed as dictated. Roro Vasquez nurse practitioner acting as scribe for Dr. Neff. Objective - Vital Signs Vital signs: Vital Signs Temp 97.9 F 05/15/20 08:00 Pulse 71 05/15/20 08:00 Resp 16 05/15/20 08:00 BP 131/80 05/15/20 08:00 Pulse Ox 100 05/15/20 08:00 Intake & Output 05/14/20 05/15/20 05/15/20 18:59 06:59 18:59 Intake Total 300 500 Balance 300 500 Weight 91.626 kg Intake: Oral 300 500 Other: Voiding Method Toilet Toilet - Labs CBC & Chem 7: 05/15/20 05:12 05/15/20 05:12 Labs: Abnormal Lab Results - Last 24 Hours (Table) 05/15/20 05/15/20 Range/Units 05:12 05:12 Hgb 12.0 L (13.0-17.5) gm/dL Hct 37.2 L (39.0-53.0) % Plt Count 485 H (150-450) k/uL ESR 70 H (0-15) mm/hr BUN <5.0 L (9.0-27.0) mg/dL C-Reactive Protein 8.1 H (0.0-0.8) mg/dL Microbiology - Last 24 Hours (Table) 05/12/20 21:50 Stool Culture - Preliminary Stool 05/10/20 13:27 Blood Culture - Preliminary Blood No Growth after 96 hours
[2020-05-15] MEDS ORDERED: ERTAPENEM 1 GM in SODIUM CHLORIDE 0.9% 50 ML IVPB ONE (18:00)
[2020-05-15] MEDS: LIDOCAINE 5% PATCH TOPICAL SCH (19:03)
[2020-05-16 07:04] VITALS: PULSE 73
[2020-05-16 08:04] LABS: Basophils % (A) 0 %; Eosinophils # (A) 0.1 k/uL (0-0.7); Eosinophils % (A) 1 %; HCT 39.4 % (39.0-53.0); HGB 12.6 gm/dL (13.0-17.5); Lymphocytes # (A) 1.3 k/uL (1.0-4.8); Lymphocytes % (A) 16 %; MCH 25.8 pg (25.0-35.0); MCHC 31.9 g/dL (31.0-37.0); MCV 80.7 fL (80.0-100.0); Mean Platelet Volume 6.2; Monocytes # (A) 0.6 k/uL (0-1.0); Monocytes % (A) 7 %; Neutrophils % (A) 74 %; Platelet Count 564 k/uL (150-450); RBC 4.88 m/uL (4.30-5.90); RDW 14.3 % (11.5-15.5); WBC 8.1 k/uL (3.8-10.6)
--- NOTE | 2020-05-16 10:09 | P.PN ---
Subjective Progress Note Date: 05/16/20 CHIEF COMPLAINT: Right lower quadrant abdominal pain HISTORY OF PRESENT ILLNESS: Patient is followed for intra-abdominal abscess. He reports that he is feeling better. He has minimal abdominal pain PHYSICAL EXAM: VITAL SIGNS: Reviewed. GENERAL: Well-developed in no acute distress. HEENT: No sclera icterus. Extraocular movements grossly intact. Moist buccal mucosa. Head is atraumatic, normocephalic. ABDOMEN: Soft. Nondistended. Right lower quadrant tenderness with palpation NEUROLOGIC: Alert and oriented. Cranial nerves II through XII grossly intact. ASSESSMENT: 1. Intra-abdominal abscess 2. Possible Crohn's disease. Being followed by GI service 3. Abdominal pain PLAN: -Treating patient conservatively -Continue IV antibiotics -Continue full liquid diet -Order Midline for outpatient antibiotics -No surgical intervention planned. Patient's symptoms are improving. 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 Signing provider agrees with the documented findings, assessment, and plan of care. Objective - Vital Signs Vital signs: Vital Signs Temp 97.7 F 05/16/20 07:04 Pulse 73 05/16/20 07:04 Resp 18 05/16/20 07:04 BP 133/86 05/16/20 07:04 Pulse Ox 100 05/16/20 07:04 Intake & Output 05/15/20 05/16/20 05/16/20 18:59 06:59 18:59 Intake Total 1095 120 Balance 1095 120 Weight 91.626 kg Intake: Intake, IV Titration 975 Amount Ertapenem 1 gm In Sodium 50 Chloride 0.9% 50 ml @ 100 mls/hr IVPB [facility] Rx# :[id number] Piperacillin-Tazobactam 3 100 .375 gm In Sodium Chloride 0.9% 100 ml @ 25 mls/hr IVPB Q8H [facility] Rx#: [id number] Sodium Chloride 0.9% 1, 825 000 ml @ 75 mls/hr IV . [id number] [facility] Rx#:[id number] Oral 120 120 Other: Voiding Method Toilet # Voids 2 2 - Labs CBC & Chem 7: 05/16/20 07:21 05/15/20 05:12 Labs: Abnormal Lab Results - Last 24 Hours (Table) 05/16/20 Range/Units 07:21 Hgb 12.6 L (13.0-17.5) gm/dL Plt Count 564 H (150-450) k/uL Microbiology - Last 24 Hours (Table) 05/12/20 21:50 Stool Culture - Final Stool 05/10/20 13:27 Blood Culture - Preliminary Blood No Growth after 120 hours
[2020-05-16] MEDS: PANTOPRAZOLE 40 MG/10 ML VIAL IVP SCH (11:13)
[2020-05-16] MEDS: SODIUM CHLORIDE 0.9% 1,000 ML IV SCH (11:17)
--- NOTE | 2020-05-16 12:57 | P.DS ---
Providers Date of admission: 05/10/20 13:10 Expected date of discharge: 05/16/20 Attending physician: Rik Arroyo MD Consults: 05/10/20 13:10 Consult Physician Urgent Consulting Provider: Artur Coe Consult Reason/Comments: Intra-abdominal abscess Do you want consulting provider notified?: Yes Consult Physician Urgent Consulting Provider: Delfina Benavides Consult Reason/Comments: Crohn's disease Do you want consulting provider notified?: Yes 05/10/20 15:09 Consult Physician Urgent Consulting Provider: Keven Neff Consult Reason/Comments: terminal ileum abcess, fever Do you want consulting provider notified?: Yes 05/11/20 18:03 Consult Physician Routine Consulting Provider: Sharif Mckeon Consult Reason/Comments: intra -Abdominal abscess pt requesting doctor for surgery Do you want consulting provider notified?: Yes Primary care physician: Stated None Hospital Course: Final diagnosis Gastroenteritis, especially terminal ileitis and ascending and transverse colitis suspicious for Crohn's disease Interloop abdominal abscesses measuring 3.7 x 1.5 cm and additional 2.3 cm abscess, improving Sepsis, present on admission secondary to above GI prophylaxis DVT prophylaxis Discharge disposition Patient is being discharged in a stable condition with guarded prognosis to home. Patient will continue with home care in the outpatient setting. Patient will follow-up with Dr. Quesada upon discharge. Patient will also continue on IV antibiotics in the form of Invanz per infectious disease recommendations. Patient also instructed to follow-up with surgery and GI in the outpatient setting. Total time taken is greater than 35 minutes. History of present illness This is a 19-year-old male who was recently admitted with mid abdominal pain rad iating to the right that was sharp in nature and was being closely monitored. Patient did have mild fever and elevated white blood count on admission and CT of the abdomen and pelvis showing interloop abscesses with associated inflammatory changes for possible colitis and Crohn's disease. Patient was seen and evaluated by surgery along with GI and infectious disease recommending conservative management at this time with IV antibiotics therapy as patient continued to show improvement. Patient will follow-up with GI, surgery, and establish with an in [facility] primary care provider here as he normally was seeing somebody out and [facility] as he is a student there. Patient's most recent CT abdomen shows interval improvement in moderate to severe inflammatory changes involving the distal ileum and cecum with mesenteric spread and adenopathy as noted previously. And patient will follow closely with surgery in the outpatient setting. Patient received a midline today and will c ontinue with IV antibiotics in the form of Invanz for an additional 2 weeks until follow-up with specialists outpatient. Patient currently tolerating diet and will continue with low fiber as instructed by surgery and GI. Patient will also continue with home care in the outpatient setting. Currently no reports of chest pain, shortness of breath, or palpitations. Patient is afebrile. No reports of nausea or vomiting and patient is tolerating diet. Patient will be discharged home and will continue with home care in the outpatient setting. On exam vital signs are stable. Temp is 97.7F, pulse is 73, respirations are 18, blood pressure is 133/86, oxygen saturation is 100% on room air. Cardio S1, S2 are muffled. Respiratory shows diminished breath sounds at the bases with no wheezing or rhonchi noted. Abdomen is soft and minimally tender. Nervous system shows no focal deficits. Please refer to medication reconciliation sheet for a list of medications. Patient Condition at Discharge: Fair Plan - Discharge Summary Discharge Rx Participant: Yes New Discharge Prescriptions: New Lidocaine 5% Patch [Lidoderm 5% Patch] 1 patch TOPICAL DAILY@2100 30 Days #30 patch Ibuprofen [Motrin] 400 mg PO Q6HR PRN tab PRN Reason: Pain Pantoprazole Sodium [Protonix] 40 mg PO DAILY #30 tablet. Acetaminophen Tab [Tylenol] 650 mg PO Q6HR PRN tab PRN Reason: Fever And/ Or Pain Discharge Medication List Acetaminophen Tab [Tylenol] 650 mg PO Q6HR PRN tab 05/16/20 [Rx] Ibuprofen [Motrin] 400 mg PO Q6HR PRN tab 05/16/20 [Rx] Lidocaine 5% Patch [Lidoderm 5% Patch] 1 patch TOPICAL DAILY@2100 30 Days #30 patch 05/16/20 [Rx] Pantoprazole Sodium [Protonix] 40 mg PO DAILY #30 tablet. 05/16/20 [Rx] Follow up Appointment(s)/Referral(s): Nick Quesada MD [REFERRING] - 05/22/20 9:10 am (if patient can not make appt.please call office to cancel) Delfina Benavides MD [STAFF PHYSICIAN] - 05/18/20 3:30 pm [facility], [NON-STAFF] - 05/17/20 [facility] [NON-STAFF] - 05/17/20 Artur Coe MD [STAFF PHYSICIAN] - 05/23/20 2:00 pm Activity/Diet/Wound Care/Special Instructions: Activity Limited until follow-up Follow-up with primary care provider upon discharge Follow up with GI in the outpatient setting Follow-up with surgery in the outpatient setting Continue with antibiotics per infectious disease recommendations Continue with low fiber diet at this time Discharge/Stand Alone Forms: Work/School Release, Work/School Release / Restrict Discharge Disposition: HOME WITH HOME HEALTH SERVICES
[2020-05-16 13:44] LABS: African American GFR (CKD) 156.3 (60.0-200.0); Blood Urea Nitrogen <5.0 mg/dL (9.0-27.0); Carbon Dioxide 25.9 mmol/L (21.6-31.8); Chloride 107 mmol/L (96-109); Glucose 82 mg/dL (70-110); Non-African American GFR(CKD) 134.9 (60.0-200.0); Potassium 4.2 mmol/L (3.5-5.5); Sodium 142 mmol/L (135-145)
[2020-05-16] MEDS ORDERED: ERTAPENEM 1 GM in SODIUM CHLORIDE 0.9% 50 ML IVPB SCH ×2 (14:00→18:00)
--- NOTE | 2020-05-16 14:20 | P.PN ---
Subjective Progress Note Date: 05/16/20 HISTORY OF PRESENT ILLNESS This is a 19-year-old male patient admitted to the hospital for intra-abdominal abscess being treated conservatively with IV antibiotics in form of Zosyn. Patient denies abdominal pain states is controlled today. No nausea or vomiting. WBC 9.7. Patient is currently tolerating a full liquid diet. Repeat CAT scan of the abdomen and pelvis revealed improvement and moderate to severe inflammatory change involving the distal ileum and cecum with mesenteric spread and adenopathy. Consider perforated appendicitis as possible etiology or severe Crohn's disease exacerbation. Consider surgical expiration. Patient is been afebrile, heart rate 71, blood pressure 131/80, pulse ox 100% on room air. Surgery is planning to continue conservative management. 05/16: Midline has been placed in the right arm. Patient received first dose of Invanz yesterday. His next dose is due at 6 PM which will be ordered for now so patient can be discharged home. Home care and home IV antibiotic therapy has been arranged by case resolution specialist. The patient is afebrile. WBC 8.1. Creatinine 0.7. PHYSICAL EXAMINATION Gen: This is a 19-year-old male. He is sitting up in a chair in his room and appears to be comfortable and in no acute distress. HEENT: Head is atraumatic, normocephalic. Pupils equal, round. Sclerae is anicteric. NECK: Supple. No JVD. No lymphadenopathy. LUNGS: Clear to auscultation. No wheezes or rhonchi. No intercostal retractions. HEART: Regular rate and rhythm. No murmur. ABDOMEN: Soft. Bowel sounds are present. No masses. Mild right lower quadrant tenderness. EXTREMITIES: No pedal edema. No calf tenderness. Midline to the right arm. NEUROLOGICAL: Patient is awake, alert and oriented x3. ASSESSMENT Intra-abdominal abscess PLAN Midline in place Invanz 1 g daily for 2 weeks as an outpatient Patient is cleared by infectious disease for discharge home. The above dictated assessment and findings were discussed with Dr. Neff. The impression and plan of care have been directed as dictated. Roro Vasquez nurse practitioner acting as scribe for Dr. Neff. Objective - Vital Signs Vital signs: Vital Signs Temp 97.7 F 05/16/20 07:04 Pulse 73 05/16/20 07:04 Resp 18 05/16/20 07:04 BP 133/86 05/16/20 07:04 Pulse Ox 100 05/16/20 07:04 Intake & Output 05/15/20 05/16/20 05/16/20 18:59 06:59 18:59 Intake Total 1095 120 Balance 1095 120 Weight 91.626 kg Intake: Intake, IV Titration 975 Amount Ertapenem 1 gm In Sodium 50 Chloride 0.9% 50 ml @ 100 mls/hr IVPB ONCE ONE Rx# :[id number] Piperacillin-Tazobactam 3 100 .375 gm In Sodium Chloride 0.9% 100 ml @ 25 mls/hr IVPB Q8H [facility] Rx#: [id number] Sodium Chloride 0.9% 1, 825 000 ml @ 75 mls/hr IV . [id number] [facility] Rx#:[id number] Oral 120 120 Other: Voiding Method Toilet # Voids 2 2 - Labs CBC & Chem 7: 05/16/20 07:21 05/16/20 07:21 Labs: Abnormal Lab Results - Last 24 Hours (Table) 05/16/20 05/16/20 Range/Units 07:21 07:21 Hgb 12.6 L (13.0-17.5) gm/dL Plt Count 564 H (150-450) k/uL BUN <5.0 L (9.0-27.0) mg/dL Microbiology - Last 24 Hours (Table) 05/12/20 21:50 Stool Culture - Final Stool 05/10/20 13:27 Blood Culture - Preliminary Blood No Growth after 120 hours
[2020-05-16 14:54] VITALS: BP 121/85; RESP 16; TEMP 97.9
--- NOTE | 2020-05-16 16:00 | P.PN ---
Subjective Progress Note Date: 05/16/20 Principal diagnosis: Abdominal pain, abdominal abscess, Crohn's disease This is a 19-year-old male patient who came in with acute abdominal pain with diarrhea. He states symptoms likely started towards the end of March early April that Better, however the last 1-2 weeks progressively Worse. He had a CT at of the abdomen and pelvis which showed interloop abscesses. He has been on IV antibiotics per recommendations from infectious disease. Surgery is been on consult. He states his abdominal pain is improved today. He states his back pain is related to the bed. He is been afebrile. WBC 8.1. Still has some loose bowel movements, non-bloody. Patient is scheduled to have a Midline placed day. Patient had a repeat computed tomography scan of the abdomen yester day which showed some interval improvement in moderate to severe inflammatory change involving distal ileum and cecum with mesenteric spread and adenopathy as detailed above. Consider perforated appendicitis is possible etiology or severe Crohn's disease exacerbation. The focal 2.3 cm central fluid collection is improved now measuring 1.1 cm. Objective - Vital Signs Vital signs: Vital Signs Temp 97.7 F 05/16/20 07:04 Pulse 73 05/16/20 07:04 Resp 18 05/16/20 07:04 BP 133/86 05/16/20 07:04 Pulse Ox 100 05/16/20 07:04 Intake & Output 05/15/20 05/16/20 05/16/20 18:59 06:59 18:59 Intake Total 1095 120 Balance 1095 120 Weight 91.626 kg Intake: Intake, IV Titration 975 Amount Ertapenem 1 gm In Sodium 50 Chloride 0.9% 50 ml @ 100 mls/hr IVPB ONCE ONE Rx# :[id number] Piperacillin-Tazobactam 3 100 .375 gm In Sodium Chloride 0.9% 100 ml @ 25 mls/hr IVPB Q8H [facility] Rx#: [id number] Sodium Chloride 0.9% 1, 825 000 ml @ 75 mls/hr IV . [id number] [facility] Rx#:[id number] Oral 120 120 Other: Voiding Method Toilet # Voids 2 2 - Exam General appearance: The patient is alert, oriented, in no acute distress. HET: Head is normocephalic and atraumatic. Conjunctiva pink. Sclera andicteric. Neck: Supple without lymphadenopathy. Abdomen: Soft, tenderness in right lower quadrant, nondistended with bowel sounds. No guarding or rigidity. Extremities: Normal skin color and turgor. No pedal edema Neurological: No focal deficits. Alert and oriented 3. - Labs CBC & Chem 7: 05/16/20 07:21 05/16/20 07:21 Labs: Abnormal Lab Results - Last 24 Hours (Table) 05/16/20 05/16/20 Range/Units 07:21 07:21 Hgb 12.6 L (13.0-17.5) gm/dL Plt Count 564 H (150-450) k/uL BUN <5.0 L (9.0-27.0) mg/dL Microbiology - Last 24 Hours (Table) 05/12/20 21:50 Stool Culture - Final Stool 05/10/20 13:27 Blood Culture - Preliminary Blood No Growth after 120 hours Assessment and Plan (1) Abdominal pain Narrative/Plan: 19-year-old male with no prior medical history who presented to the hospital with abdominal pain present over the past few months and worsening prior to presentation. She reported associated decreased oral intake and worsening of the pain with eating. He is continued to have bowel movements and denies any signs or symptoms GI bleeding although he does report some dark colored bowel movements. Patient did have leukocytosis on presentation with a WBC 17.9 and was noted to have a temperature of 101.5F. Currently the patient is on broad- spectrum antibiotic therapy. Computed tomography scan of the abdomen was significant for inflammatory changes of the terminal ileum and right colon as well as abscess formation. Unclear etiology of symptoms, however given presentation and findings on imaging concern is for Crohn's disease. Repeat CT of the abdomen showed interval improvement in moderate to severe inflammatory change involving the distal ileum and cecum with mesenteric spread and adenopathy. The focal 2.3 cm fluid collection has decreased to 1.1 cm. Symptoms are improving. Current Visit: Yes Status: Acute Code(s): R10.9 - UNSPECIFIED ABDOMINAL PAIN SNOMED Code(s): 37358168 (2) Intra-abdominal abscess Narrative/Plan: Interventional radiology unable to access abscess. General surgery is on consult, she requested second opinion from Dr. barboza. There are no plans for any acute surgical intervention during this hospitalization. Repeat CT of the abdomen showing improvement with the focal 2.3 cm central fluid collection is now 1.1 cm. Decreased inflammation. Current Visit: Yes Status: Acute Code(s): K65.1 - PERITONEAL ABSCESS SNOMED Code(s): 59769398 Plan: Supportive care Tolerating liquids, advance diet per surgical recommendations Continue monitor CBC, BMP, LFTs ESR and CRP elevated, trending down Continue broad-spectrum antibiotic therapy, ID service following Surgical service is following Repeat CT scan reviewed He would like to follow-up with an outpatient colorectal surgeon Patient to follow up with Dr. Benavides 05/30/20 Okay with discharge, patient will go home on IV Invanz for 2 weeks Thank you for allowing us to participate in the care of the patient Dr. Benavides I agree with the dictator's note, documented as a scribe by Lacie Meyer.
== END 2020-05-16 16:09 | disposition home health service (06) | DRG 872 ==
LOC: EC 10:34 → 5NMEDONC 13:10
PROVIDERS: ADMIT Internal Medicine; ATTEND Internal Medicine
PROC: 05HB33Z Insertion of Infusion Device into Right Basilic Vein, Percutaneous Approach (ICD-10-PCS; principal; 2020-05-16 15:35)
DX: A41.9 Sepsis, unspecified organism (principal); K50.014 Crohn's disease of small intestine with abscess; R74.8 Abnormal levels of other serum enzymes; M54.5 Low back pain; Z82.49 Family history of ischemic heart disease and other diseases of the circulatory system; Z83.3 Family history of diabetes mellitus
CPT/HCPCS: 36410; 36415; 74177; 76937; 80048; 80053; 81001; 82150; 82272; 83036; 83690; 84145; 85025; 85652; 86140; 87040; 87045; 87046; 87324; 96361; 96365; 99285

== ENCOUNTER → 2020-05-24 | Outpatient (CLI) | payer BC ==
--- NOTE | 2020-05-24 15:02 | CT ---
EXAMINATION TYPE: CT abdomen pelvis w con DATE OF EXAM: 05/24/2020 COMPARISON: Prior CT 05/15/2020 HISTORY: Abscess of intestines CT DLP: 796.4 mGycm Automated exposure control for dose reduction was used. TECHNIQUE: Helical acquisition of images from the lung bases through the pelvis have been completed. CONTRAST: Performed with Oral Contrast and with IV Contrast, patient injected with 100 mL of Isovue 300. FINDINGS: LUNG BASES: No significant abnormality is appreciated. AORTA: No significant abnormality is appreciated. LIVER/GB: No significant abnormality is appreciated. PANCREAS: No significant abnormality is seen. SPLEEN: No significant abnormality is seen. ADRENALS: No significant abnormality is seen. KIDNEYS: No significant abnormality is seen. REPRODUCTIVE ORGANS: No significant abnormality is seen BOWEL: Persistent extensive inflammatory change in the right lower quadrant, thickening of the termi nal ileum and cecum, ascending colon. There is an abscess cavity present posterior to the ileum and c ecum as on prior exam, cavity measures approximately 4.1 cm in transverse dimension by 3.7 cm in ceph alad to caudal dimension by 3 cm in AP dimension and shows some luminal air similar to prior exam. Co ntrast has not coursed distal to this level. Smaller area of inflammatory change, phlegmon or small a bscess present more anteriorly does not show luminal air this point. There is thickening of the late ral conal fascia. Retained fecal debris present in the rectum. FREE AIR: No Free Air visible. ASCITES: Persistent fluid present within the pelvis. PELVIC ADENOPATHY: None visualized. RETROPERITONEAL ADENOPATHY: No Retroperitoneal Adenopathy visible. URINARY BLADDER: No significant abnormality is seen. OSSEOUS STRUCTURES: No significant abnormality is seen. IMPRESSION: PERSISTENT PHLEGMON, PARTIALLY FORMED ABSCESS WITHIN THE RIGHT LOWER QUADRANT. THERE IS EXTENSIVE LOC AL INFLAMMATORY CHANGE. SOME IMPROVEMENT IN THE VOLUME OF FLUID PRESENT WITHIN THE PELVIS.
== END | disposition home or self-care (01) ==
LOC: RADCTMAIN 12:38
PROVIDERS: ATTEND Internal Medicine Infectious Disease
DX: K63.0 Abscess of intestine (principal); K63.89 Other specified diseases of intestine
CPT/HCPCS: 74177; Q9967

== ENCOUNTER 2020-06-11 07:47 | Emergency (ER) | payer BC ==
[2020-06-11 07:52] VITALS: RESP 18; TEMP 98
[2020-06-11] MEDS ORDERED: ALTEPLASE 2 MG VIAL (CATHFLO) IV STA (08:09)
--- NOTE | 2020-06-11 08:27 | ED ---
General Adult HPI - General Chief complaint: Recheck/Abnormal Lab/Rx Stated complaint: midline plugged Time Seen by Provider: 06/11/20 07:52 Source: patient Mode of arrival: ambulatory Limitations: no limitations - History of Present Illness Initial comments: Patient is a 19-year-old male presenting to emergency Department with complaints of a clogged midline. Patient states he was recently diagnosed with Crohn's disease and was being treated for an abdominal abscess. Patient states he is supposed to take Zosyn 3 times daily for the next 2 weeks. Patient states his medicine usually only takes 30 minutes to administer however yesterday's midafternoon dose took approximately 4 hours and then yesterday evening's dose was not able to finish. He states he tried to flush the line and also used heparin however it still seemed clogged. He is having no pain at the site, no redness or swelling. He's had no fever or chills. No abdominal pain, no nausea or vomiting. He follows with Dr. Benavides and Dr. Neff. He has no further complaints other than the midline. Upon arrival to the ER, his vitals are stable. - Related Data Previous Rx's Medication Instructions Recorded Acetaminophen Tab [Tylenol] 650 mg PO Q6HR PRN tab 05/16/20 Ibuprofen [Motrin] 400 mg PO Q6HR PRN tab 05/16/20 Lidocaine 5% Patch [Lidoderm 5% 1 patch TOPICAL DAILY@2100 30 Days 05/16/20 Patch] #30 patch Pantoprazole Sodium [Protonix] 40 mg PO DAILY #30 tablet. 05/16/20 Allergies Allergy/AdvReac Type Severity Reaction Status Date / Time No Known Allergies Allergy Verified 06/11/20 07:52 Review of Systems ROS Statement: Those systems with pertinent positive or pertinent negative responses have been documented in the HPI. ROS Other: All systems not noted in ROS Statement are negative. Past Medical History Past Medical History: No Reported History Additional Past Medical History / Comment(s): Crohn's History of Any Multi-Drug Resistant Organisms: None Reported Past Surgical History: No Surgical Hx Reported Past Psychological History: No Psychological Hx Reported Smoking Status: Never smoker Past Alcohol Use History: Occasional Past Drug Use History: None Reported - Past Family History Father Family Medical History: Coronary Artery Disease (CAD), Diabetes Mellitus General Exam - General Exam Comments Initial Comments: GENERAL: Patient is well-developed and well-nourished. Patient is nontoxic and in no acute distress. HEAD: Atraumatic, normocephalic. EYES: Pupils equal round and reactive to light, extraocular movements intact, sclera anicteric, conjunctiva are normal. Eyelids were unremarkable. ENT: TMs normal, nares patent, oropharynx clear without exudates. Moist mucous membranes. NECK: Normal range of motion, supple without lymphadenopathy or JVD. LUNGS: Unlabored respirations. Breath sounds clear to auscultation bilaterally and equal. No wheezes rales or rhonchi. HEART: Regular rate and rhythm without murmurs, rubs or gallops. ABDOMEN: Soft, nontender, normoactive bowel sounds. No guarding, no rebound. No masses appreciated. : Deferred MUSCULOSKELETAL: Normal extremities with adequate strength and normal range of motion, no pitting or edema. No clubbing or cyanosis. NEUROLOGICAL: Patient is alert and oriented x 3. Motor and sensory are also intact. Cranial nerves II through XII grossly intact. Symmetrical smile. Normal speech, normal gait. PSYCH: Normal mood, normal affect. SKIN: Warm, Dry, normal turgor, no rashes. Patient has midline present in Right upper arm, no erythema, no swelling or tenderness, no signs of infection. Limitations: no limitations Course Vital Signs 06/11/20 07:48 Temperature 98 F Pulse Rate 73 Respiratory 18 Rate Blood Pressure 131/87 O2 Sat by Pulse 98 Oximetry Medical Decision Making - Medical Decision Making Patient is a 19-year-old male here for a clogged right arm midline. He is currently receiving Zosyn 3 times daily for intra-abdominal abscess. No fevers, no signs of infection, no other symptoms at this time. We did attempt to use TPA to unclog the line however still not able to flush the line. We did give patient a single dose of Zosyn in the ER. Patient will follow-up with Dr. Neff.'s office tomorrow. He is stable for discharge. He is in agreement with this plan of care. Case discussed with Dr. Gayle. Disposition Clinical Impression: Occluded PICC line Disposition: HOME SELF-CARE Condition: Stable Instructions (If sedation given, give patient instructions): How to Care for Your Midline Catheter (ED) Additional Instructions: Please return to the Emergency Department if symptoms worsen or any other concerns. Follow-up with Dr. Neff's office tomorrow morning as discussed. Is patient prescribed a controlled substance at d/c from ED?: No Referrals: Nick Quesada MD [Primary Care Provider] - 1-2 days Keven Neff MD [STAFF PHYSICIAN] - 1-2 days
[2020-06-11] MEDS ORDERED: PIPERACILLIN-TAZOBACTAM 3.375 GM in SODIUM CHLORIDE 0.9% 100 ML IVPB STA (09:20)
[2020-06-11 11:12] VITALS: BP 128/76; PULSE 77
== END 2020-06-11 11:10 | disposition home or self-care (01) ==
LOC: EC 07:47
DX: T82.594A Other mechanical complication of infusion catheter, initial encounter (principal)
CPT/HCPCS: 99282; 96365; 96375; J2543; J2997

== ENCOUNTER → 2020-06-12 | Day surgery (SDC) | payer BC | LOC: CATHCVL 12:34 | PROVIDERS: ATTEND Internal Medicine Infectious Disease | DX: N39.0 Urinary tract infection, site not specified (principal) | CPT/HCPCS: 36410; 76937; C1751 ==